=== PATIENT | male | born 1945 | race African-American/Black ===

== ENCOUNTER 2016-12-22 17:22 | Inpatient (IN) ==
[2016-12-22] MEDS ORDERED: PHENERGAN PO PRN (17:46)
[2016-12-22] MEDS: LANTUS INSULIN (PARKWAY) SUBQ SCH (18:57)
[2016-12-22] MEDS: HUMALOG (PARKWAY) SUBQ SCH ×3 (18:57→22:39)
[2016-12-22] MEDS: NS 1,000 ML IV SCH (19:01)
--- NOTE | 2016-12-22 19:10 | EKG Report ---
Test Performed on : 12/22/2016 6:45:41 PM Test Reason : T2DM, Hyperglycemia Blood Pressure : / mmHG Vent. Rate : 061 BPM Atrial Rate : 061 BPM P-R Int : 124 ms QRS Dur : 088 ms QT Int : 444 ms P-R-T Axes : 072 005 -69 degrees QTc Int : 446 ms Normal sinus rhythm. Possible Left atrial enlargement Marked ST abnormality, possible inferior subendocardial injury Abnormal ECG When compared with ECG of 17-NOV-2011 19:45, No significant change was found Confirmed by Carlito Beverly MD ([id number]) on 12/24/2016 9:02:14 PM
[2016-12-22 19:59] LABS: MANUAL DIFF NEEDED? NO
[2016-12-22 20:03] LABS: BASO% 0.1 % (0.0-0.8); EOS# 0.83 X1000 (0.0-0.7); EOS% 5.4 % (0.0-10.0); HEMATOCRIT 41.7 % (42.0-52.0); HEMOGLOBIN 14.3 g/dL (14.0-18.0); IMM GRAN# 0.03 X1000 (0.0-0.04); IMM GRAN% 0.2 % (0.0-0.5); LYMPH# 1.39 X1000 (1.2-3.4); LYMPH% 9.1 % (20.5-51.1); MCH 28.7 PG (27-31); MCHC 34.3 g/dL (33-37); MCV 83.7 FL (81-99); MONO# 0.62 X1000 (0.11-0.59); MPV 9.4 FL (7.4-10.4); NEUT% 81.2 % (42.2-75.2); PLT 378 X1000 (130-400); RBC 4.98 XMIL (4.7-6.1)
[2016-12-22 20:23] LABS: ALBUMIN 4.5 g/dL (3.5-5.0); CALCIUM 10.5 mg/dL (8.8-10.2); POTASSIUM 4.1 mmol/L (3.5-5.1); TOTAL BILIRUBIN 0.3 mg/dL (0.20-1.00); TOTAL PROTEIN 7.3 g/dL (6.3-8.3)
[2016-12-22] MEDS: PRAVACHOL PO SCH (20:42)
[2016-12-22] MEDS: MYCOSTATIN SUSP PO SCH (22:39)
[2016-12-23] MEDS: NS 1,000 ML IV SCH ×4 (00:19→23:41)
[2016-12-23] MEDS: HUMALOG (PARKWAY) SUBQ SCH ×2 (03:08→06:44)
[2016-12-23 05:55] LABS: MANUAL DIFF NEEDED? NO
[2016-12-23 06:03] LABS: BASO% 0.1 % (0.0-0.8); EOS# 1.31 X1000 (0.0-0.7); EOS% 6.9 % (0.0-10.0); HEMATOCRIT 38.5 % (42.0-52.0); HEMOGLOBIN 12.8 g/dL (14.0-18.0); IMM GRAN# 0.05 X1000 (0.0-0.04); IMM GRAN% 0.3 % (0.0-0.5); LYMPH# 1.96 X1000 (1.2-3.4); LYMPH% 10.3 % (20.5-51.1); MCH 28.2 PG (27-31); MCHC 33.2 g/dL (33-37); MCV 84.8 FL (81-99); MONO# 1.61 X1000 (0.11-0.59); MONO% 8.4 % (1.7-9.3); MPV 9.6 FL (7.4-10.4); PLT 356 X1000 (130-400); RBC 4.54 XMIL (4.7-6.1)
[2016-12-23 06:55] LABS: URINE SOURCE CLEAN CATCH
[2016-12-23 07:03] LABS: BILIRUBIN URINE 1+ (NEGATIVE); BLOOD URINE NEGATIVE (NEGATIVE); CLARITY SL. CLOUDY (CLEAR); COLOR YELLOW; LEUKOCYTES URINE TRACE (NEGATIVE); NITRITE URINE NEGATIVE (NEGATIVE); PROTEIN URINE TRACE mg/dL (NEGATIVE); SP GRAVITY URINE 1.025; UROBILINOGEN URINE NORMAL
[2016-12-23 07:12] LABS: URINE CRYSTAL CA OXALATE PRESENT /HPF; URINE CULTURE PL NEEDED? YES; URINE EPITHELIAL CELLS <10 /HPF (<10)
[2016-12-23 08:16] LABS: ALBUMIN 3.8 g/dL (3.5-5.0); CALCIUM 10.1 mg/dL (8.8-10.2); POTASSIUM 3.8 mmol/L (3.5-5.1); TOTAL BILIRUBIN 0.2 mg/dL (0.20-1.00); TOTAL PROTEIN 6.5 g/dL (6.3-8.3)
[2016-12-23] MEDS: HYDROCHLOROTHIAZIDE PO SCH (09:06)
[2016-12-23] MEDS: TOPROL XL PO SCH (09:06)
[2016-12-23] MEDS: MYCOSTATIN SUSP PO SCH ×4 (09:06→21:20)
[2016-12-23] MEDS: LANTUS INSULIN (PARKWAY) SUBQ SCH (09:07)
[2016-12-23] MEDS: COZAAR PO SCH (09:07)
[2016-12-23] MEDS: HUMALOG DOSE (PARKWAY) SUBQ SCH ×4 (09:10→21:19)
[2016-12-23 14:54] LABS: MANUAL DIFF NEEDED? NO
[2016-12-23 15:02] LABS: BASO% 0.1 % (0.0-0.8); EOS# 1.67 X1000 (0.0-0.7); EOS% 10.7 % (0.0-10.0); HEMATOCRIT 39.1 % (42.0-52.0); IMM GRAN# 0.05 X1000 (0.0-0.04); IMM GRAN% 0.3 % (0.0-0.5); LYMPH# 2.43 X1000 (1.2-3.4); LYMPH% 15.5 % (20.5-51.1); MCH 28.6 PG (27-31); MCHC 33.2 g/dL (33-37); MCV 86.1 FL (81-99); MONO# 1.19 X1000 (0.11-0.59); MONO% 7.6 % (1.7-9.3); MPV 8.9 FL (7.4-10.4); NEUT% 65.8 % (42.2-75.2); PLT 337 X1000 (130-400); RBC 4.54 XMIL (4.7-6.1)
[2016-12-23 15:26] LABS: ALBUMIN 3.6 g/dL (3.5-5.0); CALCIUM 9.6 mg/dL (8.8-10.2); POTASSIUM 3.4 mmol/L (3.5-5.1); TOTAL BILIRUBIN 0.2 mg/dL (0.20-1.00); TOTAL PROTEIN 6.2 g/dL (6.3-8.3)
--- NOTE | 2016-12-23 16:30 | PROGRESS NOTE ---
DATE: 12/23/2016 This is a 71-year-old patient of mine who presented to the office with a 15 pounds weight loss, polyuria, and a blood sugar of 900, A1c greater than 15. Was admitted, placed on insulin, and a sliding scale of insulin, as well as fluid resuscitation. Today his white count is 19,000, hematocrit is 38.5, platelet count is 356,000. His chemistries from this morning, sodium is 135, potassium 3.8, chloride 94, CO2 27, BUN was 53, creatinine 3. LFTs were normal. Blood sugars are staying in the low 100s to mid 200s. He has stable vital signs. His temp is 98.7 degrees, pulse was 75, respiratory rate 18, blood pressure 115/53, O2 saturation was 96 on room air. Patient is feeling well. No longer nauseated. No more vomiting. No diarrhea. Beginning to feel better. Tongue is feeling better, which is very coated, as well as his ability to swallow. We will redo a comp 7 now.
[2016-12-23] MEDS: PRAVACHOL PO SCH (21:20)
[2016-12-24] MEDS: HUMALOG DOSE (PARKWAY) SUBQ SCH ×4 (01:41→12:14)
[2016-12-24 06:16] LABS: HEMATOCRIT 35.9 % (42.0-52.0); HEMOGLOBIN 11.7 g/dL (14.0-18.0); MCH 28.5 PG (27-31); MCHC 32.6 g/dL (33-37); MCV 87.3 FL (81-99); MPV 9.5 FL (7.4-10.4); RBC 4.11 XMIL (4.7-6.1)
[2016-12-24 06:29] LABS: AGAP 9; ALBUMIN 3.2 g/dL (3.5-5.0); ALKALINE PHOSPHATASE 137 U/L (32-122); BUN 30 mg/dL (8-22); CALCIUM 8.7 mg/dL (8.8-10.2); CHLORIDE 102 mmol/L (98-107); COSMO 279; GOT 21 U/L (10-34); GPT 20 U/L (10-44); POTASSIUM 3.2 mmol/L (3.5-5.1); SODIUM 137 mmol/L (136-145); TCO2 26 mmol/L (25-35); TOTAL PROTEIN 5.6 g/dL (6.3-8.3)
[2016-12-24] MEDS: MYCOSTATIN SUSP PO SCH ×2 (08:33→13:44)
[2016-12-24] MEDS: TOPROL XL PO SCH (08:33)
[2016-12-24] MEDS: HYDROCHLOROTHIAZIDE PO SCH (08:33)
[2016-12-24] MEDS: COZAAR PO SCH (08:34)
[2016-12-24] MEDS: LANTUS INSULIN (PARKWAY) SUBQ SCH (10:19)
[2016-12-24 10:58] VITALS: BP 125/68
--- NOTE | 2017-01-13 07:01 | HISTORY AND PHYSICAL ---
Presented to the office on 12/22 complaining of polyuria, polydipsia, and generalized weakness. Was found to have significantly 480 blood sugar done in the office. We subsequently ordered a comp on almond, which revealed that he had profound hyperglycemia. It turns out he had an been on metformin and has started having some issues with diarrhea, nausea, and vomiting. We stopped the metformin and put him on the Xigduo. He ran out of Xigduo, which was doing well, and then got back on metformin and had recurrent issues with diarrhea. He also has a background of hypertension. He is on metoprolol succinate 100 daily, losartan 100 q.a.m., hydrochlorothiazide 25 daily. His high blood pressure is uncomplicated. He has no history of congestive heart failure, cerebrovascular accident, chronic kidney disease, electrical heart disease, valvular disease, coronary artery disease, peripheral artery disease and/or aneurysms. His diabetes has been with him for some time. No hypothyroidism, no hypogonadism. REVIEW OF SYSTEMS: Pulmonary: He has no issues with his lungs. He has no shortness of breath. No wheezing. No cough. Genitourinary: He has polyuria, polydipsia. No PPH or LUTS symptoms. No kidney failure or kidney disease our knowledge. Gastrointestinal: No nausea, vomiting, diarrhea, constipation ordinarily, but as he has resumed his metformin, he is again having those symptoms. Neuromuscular: Negative. Skin: Clear. Neurological: No seizures, epilepsy, syncope. He denies any skin disorders. No psych problems. No PREPARATION SUPERVISOR disease. No allergies, asthma, or eczema. PHYSICAL EXAMINATION: VITAL SIGNS: At the time of admission the patient was 5 feet, 3, weighs 54 pounds. Temperature was 97.4, pulse 60, respiratory rate 16, blood pressure is 91/49, bit low for him. Room air sats were 97%. HEAD: His head was normocephalic. EYES: Pupils equal, round, and reactive to light and accommodation. Sclerae clear. ENT: Tongue was coated. Dry mucous membranes. Nares patent. NECK: Supple. Bounding carotids without thyromegaly. CHEST: Clear bilaterally. CARDIOVASCULAR: Regular rhythm and rate. No murmurs, gallops, clicks, and/or rubs. ABDOMEN: Soft. No hepatosplenomegaly. No costovertebral angle tenderness. EXTREMITIES: Negative for clubbing, cyanosis, and edema. NEUROLOGIC EXAMINATION: Intact. ADMITTING DIAGNOSIS: 1. Hypertension. 2. Type 2 diabetes poor control. 3. Adverse reaction to metformin. 4. Dehydration. He had the following labs on day of admission: Sodium was 131, potassium 4.1, chloride 85, CO2 26, BUN 50, creatinine 2.6. BUN and creatinine ratio was 19. Glucose 543, calcium is 10.5. Total bilirubin 0.3. AST 13 and ALT 34. Alkaline phosphatase 196. Total protein 7.3, albumin 4.5, globulin 3. He had small level of ketones. His urine was concentrated 1025. He was nitrate negative, 10 to 20 WBCs were seen. He was to be admitted to the hospital for evaluation of his diabetic control, rehydration, and reinstitution of his medications.
== END 2016-12-24 15:13 | disposition home or self-care (01) | DRG 638 ==
LOC: P.MEDSURG 17:22
PROVIDERS: ADMIT Internal Medicine; ATTEND Internal Medicine
DX: E11.65 Type 2 diabetes mellitus with hyperglycemia (principal); K52.1 Toxic gastroenteritis and colitis; I10 Essential (primary) hypertension; E86.0 Dehydration; T38.3X5A Adverse effect of insulin and oral hypoglycemic [antidiabetic] drugs, initial encounter; Z79.899 Other long term (current) drug therapy
CPT/HCPCS: 36415; 71020; 80053; 81001; 82009; 82948; 85025; 85027; 87088; 93005; 93010; J1815; J7030

== ENCOUNTER 2017-07-15 10:36 | Inpatient (IN) ==
[2017-07-15] MEDS ORDERED: NS 1,000 ML IV ONE (10:47)
[2017-07-15] MEDS ORDERED: ZOFRAN IV ONE (10:51)
--- NOTE | 2017-07-15 11:02 | EKG Report ---
Test Performed on : 07/15/2017 10:59:52 AM Test Reason : SYNCOPE Blood Pressure : / mmHG Vent. Rate : 069 BPM Atrial Rate : 069 BPM P-R Int : 128 ms QRS Dur : 076 ms QT Int : 402 ms P-R-T Axes : 067 -05 006 degrees QTc Int : 430 ms Normal sinus rhythm. Normal ECG When compared with ECG of 22-DEC-2016 18:45, ST less depressed in Inferior leads T wave inversion no longer evident in Inferior leads T wave inversion no longer evident in Anterior leads Unconfirmed Result
--- NOTE | 2017-07-15 11:24 | Diag Imaging Result Doc PS360 ---
EXAM: CT HEAD W/O CONTRAST - 07/15/2017 HISTORY: AMS TECHNIQUE: Dose reduction protocol COMPARISON: 11/17/2011 FINDINGS: There are mild atrophic changes similar to the previous exam. There are chronic microvascular ischemic changes similar to the previous exam. There is no indication of recent infarct, although acute infarcts may not be immediately visible. There is no evidence of hemorrhage, mass effect, midline shift, or hydrocephalus. There is chronic deformity of the globe of the left orbit with calcifications noted. IMPRESSION: Mild atrophic changes and moderate chronic microvascular ischemic changes similar to the previous exam. No visible acute intracranial abnormality. No hemorrhage or mass effect. Electronically signed by Evan Bailey 07/15/2017 11:22 AM
--- NOTE | 2017-07-15 11:27 | Diag Imaging Result Doc PS360 ---
EXAM: FLAT/UPRIGHT ABD/1 VIEW CHEST - 07/15/2017 HISTORY: Abd pain syncope TECHNIQUE: Supine and upright abdomen one view chest COMPARISON: Chest two views of 09/21/2017 FINDINGS: The bowel gas pattern appears nonspecific and nonobstructive. There is no free air identified. There are surgical clips at the right upper quadrant. There are some atherosclerotic calcifications noted at the pelvis and groins. Upright chest shows mild cardiomegaly with interval increase in heart size. There is vascular congestion. There is an infiltrate or edema at the left lingula. There are possible tiny bilateral pleural effusions. There is no pneumothorax identified. IMPRESSION: Nonspecific bowel gas pattern. Cardiomegaly with mild congestive heart failure. Questionable superimposed pneumonia at left lingula. Electronically signed by Evan Bailey 07/15/2017 11:25 AM
[2017-07-15 11:34] LABS: MANUAL DIFF NEEDED? NO
[2017-07-15 11:49] LABS: BASO% 0.2 % (0.0-0.8); EOS# 0.02 X1000 (0.0-0.7); EOS% 0.1 % (0.0-10.0); HEMOGLOBIN 9.7 g/dL (14.0-18.0); IMM GRAN# 0.04 X1000 (0.0-0.04); IMM GRAN% 0.3 % (0.0-0.5); LYMPH# 1.39 X1000 (1.2-3.4); LYMPH% 9.7 % (20.5-51.1); MCH 27.5 PG (27-31); MCHC 31.3 g/dL (33-37); MCV 87.8 FL (81-99); MONO# 1.58 X1000 (0.11-0.59); MPV 8.5 FL (7.4-10.4); NEUT% 78.7 % (42.2-75.2); PLT 527 X1000 (130-400); RBC 3.53 XMIL (4.7-6.1)
[2017-07-15] MEDS ORDERED: DUONEB (A & A) INH ONE (11:56)
[2017-07-15] MEDS ORDERED: ZOSYN 3.375 GM in NS 50 ML IV ONE (11:56)
[2017-07-15] MEDS ORDERED: VANCOMYCIN 1 GM/NS 1 GM/250 ML IVPB IV ONE (11:56)
[2017-07-15 12:12] LABS: CALCIUM 9.3 mg/dL (8.8-10.2); POTASSIUM 4.8 mmol/L (3.5-5.1); TOTAL BILIRUBIN 0.2 mg/dL (0.20-1.00); TOTAL PROTEIN 7.3 g/dL (6.3-8.3)
--- NOTE | 2017-07-15 13:24 | PROVIDER DOCUMENTATION ---
This chart was entered by Santos Gonzalez Scribe, acting as scribe for Saw Mustafa MD. HPI-Abdominal Pain/GI Problem - General Chief Complaint: Abdominal Pain Stated Complaint: ABDOMEN PAIN Time Seen by Provider: 07/15/17 10:39 Source: patient Allergies/Adverse Reactions: Patient Allergies Allergy/AdvReac Type Severity Reaction Status Date / Time No Known Allergies Allergy Verified 12/22/16 18:32 Home Medications: Home Medication List Medication Instructions Recorded Confirmed Last Taken Type Hydrochlorothiazide 25 mg PO QAM #0 tablet 12/24/16 Unknown Rx Losartan [Cozaar] 100 mg PO QAM #0 tablet 12/24/16 Unknown Rx Metoprolol Succinate E.r. [Toprol 100 mg PO QAM #0 tablet 12/24/16 Unknown Rx Xl] - History of Present Illness-ABD Nature of Presenting Problems: patient is a 71 y/o M that presents to the Er post syncopal episode. patient just finished having diarrhea BM and felt dizzy. He then passed out from the toilet stool. Patient reports being on floor maybe 5 to 10 minutes. patient has had abdominal pain for about 3 days. Denies n/v, fever/chills. reports more short of breath than normal. Abdominal Pain Onset Location: reports: generalized abdomen Quality of Pain: reports: aching, cramping Severity in ED: reports: moderate Onset/Duration: reports: gradual, 3 days ago Timing: reports: still present, improving Activities at Onset: reports: none Modifying Factors: improves with: nothing Associated Symptoms: reports: diaphoresis, diarrhea, dizziness, shortness of breath, syncope. denies: back/neck pain, chest pain, constipation, fever/chills , genitourinary problems, nausea, vomiting Last BM: this morning Dark Stools Present?: reports: none noticed Rectal Bleeding: reports: none Similar Symptoms Previously?: No Recently seen or treated by another doctor?: No Review of Systems - Adult - REVIEW OF SYSTEMS - ADULT Constitutional: denies: chills, fever Eyes: denies: decreased vision, blurred vision, double vision Ears, Nose, Mouth & Throat: denies: ear discharge, ear pain, sinus problem, throat pain, throat swelling Cardiovascular: reports: syncope. denies: orthopnea, palpitations Respiratory: reports: shortness of breath. denies: cough, wheezing Gastrointestinal: reports: abdominal pain, diarrhea. denies: nausea, vomiting Genitourinary: reports: no symptoms reported Musculoskeletal: denies: back pain, joint pain, neck pain Integumentary: reports: no symptoms reported Neurological: reports: dizziness/vertigo, syncope. 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 negative: pale conjunctivae - HEAD, EARS, NOSE, MOUTH & THROAT HENMT: normocephalic/atraumatic, moist mucous membranes, normal ENT inspection - NECK Neck: non-tender, full range of motion, normal inspection - RESPIRATORY Respiratory: lungs clear, normal breath sounds, no respiratory distress, no accessory muscle use - CARDIOVASCULAR Cardiovascular: regular rate, rhythm, no edema, no murmur - GASTROINTESTINAL (ABDOMEN) Abdominal Exam: normal bowel sounds, non tender, soft, no organomegaly, no pulsatile mass - MUSCULOSKELETAL Back Exam: no CVA tenderness, no vertebral tenderness Extremity: normal range of motion, normal inspection, no pedal edema, pelvis stable - SKIN Integumentary: normal turgor, diaphoresis - NEUROLOGIC Neurologic: grossly normal, no motor/sensory deficits - PSYCHIATRIC Psych/Mental Status: normal mood/affect, normal thought content, normal thought process, oriented x 3 Progress - PLAN OF CARE/RESULTS Progress/Plan/Lab Results: Vital Signs - 8 hr 07/15/17 10:37 Pulse Rate 74 Respiratory Rate 24 Blood Pressure 106/080 O2 Sat by Pulse Oximetry 90 L Vital Signs Pulse Resp BP Pulse Ox 07/15/17 12:18 71 26 H 137/86 99 07/15/17 12:05 70 20 100 07/15/17 10:37 74 24 106/080 90 L No Known Allergies Allergy (Verified 12/22/16 18:32) Hydrochlorothiazide 25 mg PO QAM #0 tablet 12/24/16 Losartan [Cozaar] 100 mg PO QAM #0 tablet 12/24/16 Metoprolol Succinate E.r. [Toprol Xl] 100 mg PO QAM #0 tablet 12/24/16 Dietary Diet NPO Start ThuJul 15 104 Laboratory 07/15/17 07/15/17 07/15/17 12:10 11:30 11:30 WBC 14.37 H RBC 3.53 L Hgb 9.7 L Hct 31.0 L MCV 87.8 MCH 27.5 MCHC 31.3 L RDW Std Deviation 14.8 H Plt Count 527 H MPV 8.5 Immature Gran % (Auto) 0.3 Neut % (Auto) 78.7 H Lymph % (Auto) 9.7 L [place] % (Auto) 11.0 H Eos % (Auto) 0.1 Baso % (Auto) 0.2 Immature Gran # (Auto) 0.04 Neut # (Auto) 11.31 H Lymph # (Auto) 1.39 [place] # (Auto) 1.58 H Eos # (Auto) 0.02 Baso # (Auto) 0.03 Sodium Potassium Chloride Carbon Dioxide Anion Gap BUN Creatinine Estimated GFR/1.73 m2 BUN/Creatinine Ratio Glucose Calculated Osmolality Calcium Magnesium Total Bilirubin AST ALT Alkaline Phosphatase Troponin T Pmp-L-[id number] Pept 387 H Total Protein Albumin Globulin Albumin/Globulin Ratio Amylase Lipase Plasma Lactate 2.6 H 07/15/17 07/15/17 11:30 11:30 WBC RBC Hgb Hct MCV MCH MCHC RDW Std Deviation Plt Count MPV Immature Gran % (Auto) Neut % (Auto) Lymph % (Auto) [place] % (Auto) Eos % (Auto) Baso % (Auto) Immature Gran # (Auto) Neut # (Auto) Lymph # (Auto) [place] # (Auto) Eos # (Auto) Baso # (Auto) Sodium 130 L Potassium 4.8 Chloride 98 Carbon Dioxide 15 L Anion Gap 17 BUN 48 H Creatinine 2.0 H Estimated GFR/1.73 m2 33 BUN/Creatinine Ratio 24 Glucose 178 H Calculated Osmolality 278 Calcium 9.3 Magnesium 2.0 Total Bilirubin 0.20 AST 22 ALT 25 Alkaline Phosphatase 135 H Troponin T 0.027 Ovs-A-Bssvfuwyyzv Pept Total Protein 7.3 Albumin 4.0 Globulin 3.0 Albumin/Globulin Ratio 1.0 Amylase 156 Lipase 28 Plasma Lactate Orders Category Date Time Status Saline Loc DIRECTED Care 07/15/17 10:47 Active NPO Diet 07/15/17 10:[address] HEAD W/O CONTRAST [CT] Stat Exams 07/15/17 10:47 Completed FLAT/UPRIGHT ABD/1 VIEW CHEST [RAD] Stat Exams 07/15/17 10:47 Completed AMYLASE [CHEM] Stat Lab 07/15/17 11:30 Completed BLOOD CULTURE [BLDCUL] Stat Lab 07/15/17 11:56 Ordered CBC WITH ELECTRONIC DIFF [HEME] Stat Lab 07/15/17 11:30 Completed COMPREHENSIVE METABOLIC PANEL [CHEM] Stat Lab 07/15/17 11:30 Completed LACTATE, PLASMA [CHEM] Stat Lab 07/15/17 12:10 Completed LIPASE [CHEM] Stat Lab 07/15/17 11:30 Completed MAGNESIUM [CHEM] Stat Lab 07/15/17 11:30 Completed PRO B-NATRIURETIC PEPTIDE Stat Lab 07/15/17 11:30 Completed TROPONIN T Stat Lab 07/15/17 11:[address] W/POSS RFLX CULT [URINALYSIS] Stat Lab 07/15/17 10:47 Uncollected 0.9% Sodium Chloride Inj [Ns] 1,000 ml Med 07/15/17 10:47 Discontinued IV 999 mls/hr Albuterol 2.5MG/Ipratrop 0.5MG [Duoneb (A & A)] Med 07/15/17 11:56 Discontinued 3 ml INH NOW ONE Ondansetron [Zofran] Med 07/15/17 10:51 Discontinued 4 mg IV NOW ONE Piperacillin/Tazobactam [Zosyn] 3.375 gm Med 07/15/17 11:56 Discontinued 0.9% Sodium Chloride Inj [Ns] 50 ml IV NOW Vancomycin 1 gm/Ns Med 07/15/17 11:56 Discontinued 1 gm in 250 ml IV NOW Aerosol Treatments Routine Oth 07/15/17 11:57 Completed Aerosol Treatments Stat Oth 07/15/17 11:57 Completed EKG [EKG] Stat Ther 07/15/17 10:47 Draft Result Diagrams: 07/15/17 11:30 07/15/17 11:30 - EKG 1 Time of EKG reading by physician:: 10:59 EKG Read and Signed by:: Saw Mustafa EKG Interpretation (*Must complete 3 of following elements*): Normal Rate: 69 Rhythm: NSR [place]: normal QRS: normal MA Interval: normal ST Wave: normal - XRAY 1 XRAY Study: Chest Impression: Abnormal XRAY Interpretation: cmg with chf, questionable superimposed left lingular pneumonia - CT/MRI 1 CT Study: Head Impression: Abnormal CT Results: mild atrophy, microvascular changes - CONSULTS/PCP/HOSPITALIST Notification #1 *Consult/PCP/Hospitalist*: Time Discussed: 13:20 Consult Disposition: Admit Departure - Departure Date of Disposition Decision: 07/15/17 Time of Disposition Decision: 13:22 DIAGNOSIS: Syncope, Pneumonia Disposition: ADMITTED INPATIENT 09 Certified Medical Emergency: Emergent Condition: Stable Referrals and Follow-Ups: None,PCP [Primary Care Provider] - - Critical Care Note This patient required my direct & personal management of CC.: No Attestation - Physician/ DARBY Attestation The physician spent face to face time with patient:: Yes Advanced Practice Provider documentation review:: Supervising physician onsite and consulted in the evaluation and care of this patient. The physician did have a face to face encounter with the patient. This chart was documented by the indicated scribe, (Santos Gonzalez, Scribe) and accurately reflects the services I performed and decisions made by me, Saw Mustafa MD, as attested by the provider's signature.
[2017-07-15] MEDS: ZOFRAN IV PRN (15:45)
[2017-07-15 16:09] LABS: BILIRUBIN URINE NEGATIVE (NEGATIVE); BLOOD URINE NEGATIVE (NEGATIVE); CLARITY CLEAR (CLEAR); COLOR YELLOW; GLUCOSE URINE NEGATIVE (NEGATIVE); LEUKOCYTES URINE NEGATIVE (NEGATIVE); NITRITE URINE NEGATIVE (NEGATIVE); PROTEIN URINE TRACE mg/dL (NEGATIVE); UROBILINOGEN URINE NORMAL
[2017-07-15 16:10] LABS: URINE CAST NONE SEEN /LPF; URINE CRYSTAL NONE SEEN /HPF; URINE CULTURE PL NEEDED? YES; URINE EPITHELIAL CELLS <10 /HPF (<10); URINE RBC <10 /HPF (<10); URINE SOURCE CLEAN CATCH; URINE WBC <10 /HPF (<10)
[2017-07-15] MEDS ORDERED: LASIX IV ONE (23:57)
[2017-07-15] MEDS ORDERED: ALBUTEROL NEB INH ONE (23:58)
[2017-07-16] MEDS: ZOFRAN IV PRN (06:57)
[2017-07-16] MEDS ORDERED: TYLENOL PO ONE (07:02)
[2017-07-16] MEDS ORDERED: PHENERGAN IV ONE (10:12)
[2017-07-16] MEDS ORDERED: SODIUM CHLORIDE 0.9% INJ ONE (10:12)
[2017-07-16] MEDS ORDERED: DEMEROL IV ONE (10:13)
[2017-07-16 10:29] LABS: BE -13.2 mmoll (-3.0-3.0); BLOOD TYPE ARTERIAL; DRAW SITE R RADIAL; METHB 1.4 % (0.0-1.5); O2(CT) 12.1 mL/dL (15.0-23.0); PCO2(98.6) 25 mmHg (35-45); PO2(98.6) 79 mmHg (60-100); SAMPLE BLOOD; SAO2 96.8 % (95.0-100.0); THB 9.1 g/dL (11.5-17.4); pH(98.6) 7.29 (7.35-7.45)
[2017-07-16 10:32] LABS: MANUAL DIFF NEEDED? NO
[2017-07-16 10:34] LABS: ALLEN TEST YES; MODALITY CANNULA
[2017-07-16 10:48] LABS: BASO% 0.1 % (0.0-0.8); HEMATOCRIT 28.8 % (42.0-52.0); HEMOGLOBIN 9.4 g/dL (14.0-18.0); IMM GRAN# 0.05 X1000 (0.0-0.04); IMM GRAN% 0.4 % (0.0-0.5); LYMPH# 0.94 X1000 (1.2-3.4); LYMPH% 6.8 % (20.5-51.1); MCH 28.2 PG (27-31); MCHC 32.6 g/dL (33-37); MCV 86.5 FL (81-99); MONO# 1.11 X1000 (0.11-0.59); MPV 8.8 FL (7.4-10.4); NEUT% 84.7 % (42.2-75.2); PLT 510 X1000 (130-400); RBC 3.33 XMIL (4.7-6.1)
[2017-07-16 11:08] LABS: CALCIUM 9.1 mg/dL (8.8-10.2); POTASSIUM 5.6 mmol/L (3.5-5.1)
[2017-07-16] MEDS: NS 1,000 ML IV SCH ×3 (13:00→20:47)
[2017-07-16] MEDS ORDERED: NS 1,000 ML ONE (13:08)
[2017-07-16] MEDS ORDERED: SENSORCAINE 0.5%-EPI 1:200,000 ONE (13:32)
[2017-07-16] MEDS ORDERED: KETAMINE ONE (13:37)
[2017-07-16] MEDS ORDERED: VERSED ONE (13:39)
--- NOTE | 2017-07-16 13:39 | Diag Imaging Result Doc PS360 ---
CHEST-1 VIEW - 07/16/2017 INDICATION: Cardiac Tamponade TECHNIQUE: COMPARISON: 07/15/2017 FINDINGS: Lung volumes are much lower than yesterday. The heart size is enlarged but approximately stable from prior. There is a grossly stable ill-defined infiltrate at the left midlung and base. The right lung is clear. No pneumothorax or significant effusion. IMPRESSION: Much lower lung volumes but otherwise no change from prior. Electronically signed by Brad Bethea 07/16/2017 1:37 PM
[2017-07-16] MEDS ORDERED: STERILE WATER INJ. ONE (13:40)
[2017-07-16] MEDS ORDERED: APRESOLINE IV PRN (14:00)
[2017-07-16] MEDS ORDERED: ZEMURON ONE (14:06)
[2017-07-16] MEDS ORDERED: SODIUM CHLORIDE 0.9% 10 ML ONE (14:09)
[2017-07-16] MEDS ORDERED: KEFZOL 1 GM/D5W 1 GM/50 ML IVPB ONE (14:18)
[2017-07-16] MEDS ORDERED: EPHEDRINE ONE (14:39)
--- NOTE | 2017-07-16 14:40 | ECHO REPORT ---
ORDER DATE: 07/16/2017 INDICATION: Syncope, diabetes, hypertension. FINDINGS: This is a limited study. 1. Right heart structures are somewhat difficult to visualize. Overall, there does appear to be early diastolic collapse of the right ventricle with what appears to be normal RV systolic function. In addition, right atrium appears normal in size. There was essentially very minimal Doppler evaluation of the tricuspid valve. 2. Left atrium was poorly visualized and minimally evaluated. 3. No mitral valve prolapse. Trace mitral regurgitation. There is some evidence of mitral annular calcification. 4. The left ventricle appears to be somewhat under filled. There is estimated ejection fraction greater than 55%. Very limited measurements were made. 5. The aortic valve appears to open well. It is somewhat sclerotic. There does not appear to be any appreciable degree of stenosis. Limited Doppler evaluation of the aortic valve. 6. Limited evaluation of the aorta but overall appears unremarkable in the visualized segments. 7. There is a large circumferential pericardial effusion with the primary portions of it being in the anterior. There does appear to be diastolic right ventricular and right atrial collapse consistent with tamponade-type physiology. Again, minimal Doppler evaluations across the tricuspid and mitral valves. So, very limited data to assess for respirophasic changes. 8. The patient was evaluated by the local physician at [facility] and was notified of the findings of the echo. Per report, the patient has been transferred for definitive management of the pericardial effusion. cc: MD Carlito Hayes MD
[2017-07-16] MEDS ORDERED: NEOSTIGMINE ONE (14:52)
[2017-07-16] MEDS ORDERED: ROBINUL ONE (14:52)
[2017-07-16] MEDS: LASIX ONE ×2 (15:20→17:45)
--- NOTE | 2017-07-16 15:42 | Diag Imaging Result Doc PS360 ---
EXAM: CHEST-PORTABLE HISTORY: pericardio window TECHNIQUE: Portable upright AP COMPARISON: 07/16/2017 at 1320 FINDINGS: Small infiltrates or atelectasis in the mid and lower lungs. Findings are slightly more pronounced in the right base than they were previously. Heart remains mildly prominent. The left hemidiaphragm is elevated. No pneumothoraces. A catheter overlies the right side of the heart. IMPRESSION: Worsening atelectasis. Electronically signed by Kenneth Barrett 07/16/2017 3:40 PM
[2017-07-16] MEDS: XOPENEX NEB INH SCH ×3 (16:30→23:04)
[2017-07-16] MEDS: ATROVENT NEB INH SCH ×3 (16:30→23:04)
--- NOTE | 2017-07-16 16:44 | HISTORY AND PHYSICAL ---
PRIMARY CARE PROVIDER: Dr. Beverly. CHIEF COMPLAINT: Stomach pains, syncope, shortness of breath, and now with cardiac tamponade. HISTORY OF PRESENT ILLNESS: Mr. Walter Phillips is a 71-year-old male with a medical history of hypertension, diabetes mellitus type 2, hyperlipidemia, GERD , who presented yesterday to [place] [facility] after a syncopal episode. He was on the toilet, had just finished having a loose stool, and felt dizzy. He passed out off the toilet onto the floor for about 5-10 minutes. states that he was very sweaty and lightheaded. This apparently happened yesterday 07/15/2017 around 12 noon and was brought to the ER. Much information was obtained through medical records and the patient's as he was too short of breath and to give much detail. But apparently he has been having some epigastric abdominal pains along with shortness of breath and lightheaded spells for the last 2-3 days. She also stated that he was having chills and a productive cough with some nausea. Upon arrival to the ED a chest x-ray was obtained which showed cardiomegaly, congestive heart failure, and a left lingula pneumonia. He did have a white blood cell count of 14,000 but was afebrile. He also had a head CT which was negative. Apparently he was having some distress when he was on the floor, significant shortness of breath, some mild hypotension. An echocardiogram showed a pericardial effusion with symptoms of pericardial tamponade. He was emergently transferred here for advanced care. He has been seen by Dr. Liang at the bedside and now has left for emergency surgery, likely a pericardial window. Then he will be transferred to the ICU for close observation. Given the abdominal pains being epigastric, the abdominal x-ray did not show anything. Maybe once he is more stable he can undergo a chest, abdomen, and pelvic CT. He will be on antibiotic therapy for pneumonia. It looks like he only received a 1 time dose of Zosyn and 1 time dose of vancomycin. Will follow along in the ICU. He does have cardiology on board as well. PAST MEDICAL HISTORY: Hypertension, poorly-controlled diabetes mellitus type 2 , hyperlipidemia, GERD, left eye blindness, CKD stage 3. PAST SURGICAL HISTORY: Umbilical hernia repair. SOCIAL HISTORY: Quit smoking 4 years ago. Prior to that smoked a half pack per day. He denied alcohol or illicit drug use. Lives at home with his . FAMILY HISTORY: Positive for diabetes mellitus type 2. REVIEW OF SYSTEMS: Fourteen point review of systems were complete and all were negative except for those mentioned in the above HPI. He did have some nausea, severe shortness of breath upon assessment, complaining of the epigastric chest pains 9/10 that radiated to his upper abdomen. Did have some chills, shortness of breath, nausea, dizziness with lightheaded spells, some diaphoresis, and a syncopal spell. ALLERGIES: No known drug allergies. HOME MEDICATIONS: Albuterol inhaled 1 puff every 6 hours p.r.n., amlodipine besylate 5 mg p.o. daily, Glimepiride 4 mg p.o. daily, Losartan hydrochlorothiazide 100/12.5 mg p.o. daily, metformin 500 mg p.o. t.i.d. before meals, metoprolol Toprol-XL 100 mg p.o. daily, pravastatin 40 mg p.o. nightly, and Bactrim 1 tablet p.o. twice daily. PHYSICAL EXAMINATION: VITAL SIGNS: Temperature 95.9 degrees, heart rate 95, respiratory rate was 40, blood pressure 161/103, saturation 98% on 4 L nasal cannula. GENERAL: Mr. Walter Phillips is a 71-year-old male, who is in a significant amount of respiratory distress. He is able to answer some questions but with difficulty as he was very short of breath. HEENT: Atraumatic, normocephalic. Pupils equal, round, reactive to light. Extraocular movements intact. Mucous membranes are dry. NECK: Trachea midline. CARDIOVASCULAR: S1, S2. Regular rate and rhythm. Negative for rubs or gallops , but very muffled to auscultation. He had bilateral radial pulses +2. Left pedal pulse was nonpalpable. Right pedal pulse was found with Doppler. Lower extremities are cool. PULMONARY: Decreased in the bases. Mild crackles throughout. Shallow, rapid breathing. Significant work of breathing. Currently on 4 L nasal cannula. GI: Soft. Tender in epigastric region. Hypoactive bowel sounds x4. Nondistended. EXTREMITIES: No edema. Moves all extremities equally. NEUROLOGIC: A O x4. Moves all extremities equally. Follows commands. SKIN: Warm and clammy. Cool lower extremities but intact. LABORATORY DATA: White blood cells 13,000, hemoglobin 9.4, hematocrit 28.8, platelet count 510,000. ABGs on 3 L nasal cannula, pH 7.29, pCO2 25, PO2 79, bicarb 14, base excess -13, lactate 3.0. Sodium 136, potassium 5.6, BUN 66, creatinine is 2.2, glucose 266. Urinalysis yesterday was negative. Amylase and lipase were 182 and 23. IMAGING: Since admission, abdominal x-ray: Nonspecific bowel-gas pattern. EKG : Sinus rhythm. Some mild ST depression in the inferior leads. QTc was 430. Rate was 69. Head CT: Mild atrophic changes and moderate chronic microvascular ischemic changes similar to previous exam. No acute findings. Chest x-ray: Much lower lung volumes but otherwise no change from prior. The chest x-ray findings showed cardiomegaly with mild congestive heart failure, questionable superimposed pneumonia at the left lingula. ASSESSMENT AND PLAN: 1. Cardiac tamponade secondary to large pericardial effusion. Emergently transferred here for a pericardial window by Dr. Liang. Too unstable for chest CT but once patient is more stable will obtain a chest CT. 2. Complaints of abdominal pain. Abdominal x-ray did not show anything acute but will likely need an abdominal CT once stable. 3. Hypertension. Once he is stable we can consider resuming his Toprol 100 mg p.o. daily. Likely we will hold on his losartan hydrochlorothiazide as he has some MERA and possibly hold on his amlodipine. But will follow recommendations from cardiology. 4. Diabetes mellitus type 2. Pattern blood glucoses, sliding scale insulin. Diabetic diet once stable. Will hold metformin as patient does have some MERA. 5. Hyperlipidemia. Will continue statin. 6. Community-acquired pneumonia. We will do Rocephin. 7. Positive signs and symptoms of sepsis. He has an elevated white blood cell count, elevated respiratory rate. CO2 is low, bicarb low. Lactate is up to 3.0. He will be receiving IV fluid hydration at 125 an hour. We will continue with antibiotic therapy and follow up on cultures. 8. Acute kidney injury, looks like on chronic kidney disease stage 3. Will receive IV fluid hydration for now. 9. Hyperkalemia. Will recheck once back from surgery and will treat accordingly. 10. Mixed acidosis secondary to kidney dysfunction and respiratory distress or respiratory failure. Will repeat ABGs tomorrow morning. 11. Gastroesophageal reflux disease. Continue with proton pump inhibitor. 12. Deep venous thrombosis prophylaxis. SCDs. Dictated by FRANCHESCA Evans for Ketan Caceres MD cc: FRANCHESCA Evans MD Michael Putman, MD pt examined, agree with above, seen face to face, pt had pulsus paradoxus on exam, and large symptomatic effusion, will admit to ICU, seen in PACU and was still hypoxic, s/p pericardial effusion, will repeat echo and pursue ct scan of chest to evaluate for mailgnancy APENOT MTDD
[2017-07-16] MEDS: HUMULIN R SUBQ SCH ×2 (17:44→20:42)
[2017-07-16] MEDS: ZOSYN 3.375 GM in NS 50 ML IV SCH ×2 (17:45→23:56)
[2017-07-16 17:48] LABS: IRON SATURATION 25 %; TIBC 239 ug/dL; TOTAL IRON 60 ug/dL (53-167); UNBOUND IRON 179 ug/dL (112-346)
[2017-07-16 17:49] LABS: UR CREAT RANDOM 13.8 mg/dL (14-26)
--- NOTE | 2017-07-16 18:07 | CONSULTATION ---
DATE OF CONSULTATION: 07/16/2017 IMPRESSION: 1. Recent syncope. 2. Large pericardial effusion evident with echocardiographic markers for tamponade. Etiology for effusion not entirely clear. 3. Progressive epigastric discomfort and recent diarrhea. Etiology not clear. 4. Chronic kidney disease. 5. Anemia. 6. Hypertension. 7. Type 2 diabetes mellitus. 8. Previous heavy cigarette use discontinued 4 years ago. 9. Previous heavy alcohol use also discontinued 4 years ago. RECOMMENDATIONS: 1. Given clinical presentation, large pericardial effusion, and echocardiographic markers of tamponade, urgent pursuit of removal of pericardial fluid needed to stabilize patient. Pericardiocentesis and/or pericardial window recommended and discussed with the patient and his family. Urgency of the situation also stressed to the patient. 2. Intravenous fluids. 3. Chest CT scan needed along with stat chest x-ray. 4. Further recommendations to follow depending on clinical course and radiographic findings. HISTORY: This is a 71-year-old, -[place] male with past history of hypertension, type 2 diabetes mellitus, gastroesophageal reflux, chronic kidney disease, previous heavy smoking, and previous heavy alcohol use was admitted to [facility] for further management after presenting with recent syncope as well as progressive upper abdominal pain and recent diarrhea. The patient relates a long history of recurrent epigastric to low substernal discomfort, which is dull to burning in character. He has been taking anti-reflux medications with some improvement in discomfort. He reports that recently discomfort got considerably worse and did not seem to respond. Discomfort has been near continuous for several days. He has had some recent diarrhea as well. He had bowel movement and at the conclusion of this, he had a syncopal spell. He was brought to the hospital for evaluation. Syncope workup was being pursued. Echocardiography indicated large pericardial effusion with echocardiographic markers for tamponade. Urgent cardiology consultation was requested. The patient denies any history of heart problems in the past. He is not known to have vascular disease. PAST MEDICAL HISTORY: 1. Hypertension. 2. Type 2 diabetes mellitus. 3. Chronic kidney disease. 4. Gastroesophageal reflux disease. 5. History of previous heavy cigarette use in the past. Discontinued 4 years ago. 6. History of heavy alcohol use in the past. Discontinued 4 years ago. 7. History of blindness left eye. ALLERGIES: He has no known drug allergies. He has demonstrated intolerance to metformin in the past. MEDICATIONS: Prior to admission include hydrochlorothiazide, losartan and metoprolol. PAST SURGICAL HISTORY: None. SOCIAL HISTORY: He has history of previous heavy cigarette use, discontinued 4 years ago. He also has history of previous heavy alcohol use. Discontinued 4 years ago. FAMILY HISTORY: Negative for premature coronary disease. REVIEW OF SYSTEMS: Pulmonary: Noteworthy for mild dyspnea, but otherwise negative. There has been no hemoptysis. Gastrointestinal: Noteworthy for upper abdominal discomfort as well as nausea. He has had some recent diarrhea. There has been no melena. There is history of gastroesophageal reflux. Constitutional: Noncontributory beyond history of present illness. Remainder of review of systems negative/noncontributory beyond history of present illness with 14 total systems reviewed. PHYSICAL EXAMINATION: General: This is a thin, older, male in no distress. Vital Signs: Blood pressure 130/60, heart rate 94. HEENT Exam: Mucous membranes are somewhat dry. Neck: Supple. Jugular venous distention is evident and is prominent. With inspiration, neck vein distention does not seem to go down, but rather appears to increase mildly. Chest: Auscultation of the chest reveals breath sounds on the right much more audible than breath sounds on the left. No rales could be appreciated. Cardiac Exam: Reveals a regular rate and rhythm without appreciable murmur or gallop. Abdomen: Soft. Bowel sounds are audible. There is no rebound tenderness. Extremities: Without edema. His distal lower extremities are somewhat cool. Radial pulses are easily palpated bilaterally. Posterior tibialis pulses are palpable bilaterally. It is noteworthy that pulsus paradoxus is present. Neurologic Exam: Reveals him to be alert and responsive. Speech is fluent. Moves all 4 extremities equally well. DIAGNOSTIC DATA: EKG obtained on admission demonstrates normal sinus rhythm and is within normal limits. Echocardiography demonstrates large pericardial effusion with M-mode across RV free wall showing transient diastolic right ventricular free wall buckling. Left ventricular EF is normal. Study is technically difficult with respect to visualization of the aortic root, but no obvious dissection is evident. cc: MD Carlito Champagne MD
--- NOTE | 2017-07-16 18:08 | CONSULTATION ---
DATE OF CONSULTATION: 07/16/2017 HISTORY OF PRESENT ILLNESS: This 71-year-old male with relatively limited medical history due to mostly medical noncompliance, does have hypertension, who presents with increasing shortness of breath and some central chest pain, discomfort. He was found to have a large cardiac silhouette on his chest x-ray. Echocardiogram shows a large pericardial effusion with tamponade physiology. He has been hemodynamically stable although cannot lie flat. He has been tachycardic. He was transferred over here for surgical management. He was at [facility] and admitted under Dr. Beverly. I spoke with the adoption services manager and Dr. Beverly about this. Cardiology does not see hematocrit level of the fluid but he is unable to undergo CT scan given his symptoms, but denies any real abdominal pain or back pain or lower extremity pain. PAST MEDICAL HISTORY: 1. Hypertension. 2. Tobacco and alcohol abuse in the past. PAST SURGICAL HISTORY: He has had inguinal hernia and appendectomy. SOCIAL HISTORY: Strong tobacco and alcohol abuse. He has a lot of family here with him but history is a little limited. FAMILY HISTORY: Was reviewed and noncontributory. REVIEW OF SYSTEMS: 10 point negative other than HPI PHYSICAL EXAMINATION: Vital signs: Temperature is 98.9 degrees. Pulse has been as high as 117; it is 95 currently. Blood pressure 130s to 160s. Oxygen saturation 98% on 4 L. General: He is alert. Working to breathe. Obvious distress. Sitting straight up in bed. Cardiovascular: Normal rate. jugual venous distension bilaterally Regular rhythm. Pulmonary: He is tachypneic but equal chest rise. Abdomen is soft, nontender, nondistended. Integumentary: Warm and dry without jaundice. Peripheral vascular exam: His feet are not mottled but somewhat cool. Her has equal pedal pulses bilaterally in the upper and lower extremities. HEENT: I do not see any scleral icterus on his head neck exam. Musculoskeletal: He is just overall thin chronically ill appearing. Neurological: He is alert and oriented. Psychiatric: anxious but appropriately so LABS: White count is elevated at 13, hematocrit 28, platelets are 510,000. ABG , 7.29, 25, 79, 14. Lactate was elevated at 3. Creatinine is 2.2. Potassium 5.6. Glucose of 266. Lipase 23. Urinalysis is negative for nitrates, leukocytes. Chest x-ray shows cardiomegaly with diminished lung volumes. There is an infiltrate in the left lung. No pneumothorax or pleural effusion. ASSESSMENT AND PLAN: This is a 71-year-old male with cardiac tamponade related to a pericardial effusion of unclear etiology. He does give a history of dysphagia symptoms chronically and some chronic chest discomfort. I worry that this smoker and drinker could have a GI or pulmonary malignancy that is causing an effusion. Will need to work this up as well. In the meantime, will go urgently for pericardial window today. Will leave a drain. Discussed with the family the risks, benefits, and alternatives of this including the possibility of median sternotomy, possibility of , possibility of pneumothorax, possibility of staying on a ventilator, and the potential diagnosis that is causing this. They understand and consent, as the patient. Cardiology is following. The hospitalist is managing the patient. Will make a decision about his disposition but most likely ICU postoperatively. cc: MD Carlito Guzman MD MTDD
--- NOTE | 2017-07-16 18:29 | OPERATIVE NOTE ---
PROCEDURE DATE: 07/16/2017 PREOPERATIVE DIAGNOSES: Cardiac tamponade. POSTOPERATIVE DIAGNOSIS: Cardiac tamponade. PROCEDURES PERFORMED: Pericardial window with drain placement. ESTIMATED BLOOD LOSS: 30 mL, and 2 L of pericardial fluid. ANESTHESIA: General. DRAINS: FLACO drain left in the pericardium. SPECIMENS: 1. Pericardium biopsy. 2. Pericardial fluid for culture and cytology. INDICATIONS: A 71-year-old male who presented with chest pain, shortness of breath, with x-ray and echocardiogram showing large pericardial effusion and tamponade physiology. He had evidence of pulsus paradoxus and jugular venous distention and pericardial window drainage of infusion was indicated emergently. OPERATIVE FINDINGS: Was 2 L of sanguinous appearing pericardial fluid with rapid improvement in his hemodynamics after drainage. OPERATIVE NOTE: Risks, benefits, alternatives discussed with the patient's family. They consented to the procedure. He was seen preoperatively and surgery to be performed was confirmed. He was taken to the operating room, placed in supine position. General anesthesia induced without complication. Preincisional antibiotics were administered. He was prepped widely from his neck to his pubis with chlorhexidine solution and draped in the usual fashion with Ioban drapes. After this, a time-out was performed. We planned a midline incision just left of the xiphoid, carried this up to the costal margin. We dissected down to the level of fascia, entered the plane behind the xiphoid and bluntly dissected this up to level of pericardium. It was tented out and quite distended and tense. Using Allis forceps we grasped a portion of pericardium and excised with a 15 blade scalpel excising a portion of this and passing off to pathology. A large amount of fluid was under quite a lot of pressure and was expressed and suctioned until clear. We palpated inside the pericardium, there was no pericardial adhesions and the drainage stopped and his hemodynamics improved. We placed a Ever drain in the pericardium, brought this out through a stab incision lateral to the incision, secured it with a nylon suture. We then closed the fascia with a #1 PDS suture in a running fashion. Skin was closed with 4-0 Monocryl in subcuticular fashion. Dermabond was applied. FLACO drain was placed to suction. Tolerated the procedure well. Was extubated and transferred to recovery room. We plan to watch him in the ICU. Counts were correct x2. I spoke with the family. cc: MD Carlito Guzman MD
[2017-07-16 19:27] LABS: DIFF NEEDED? YES; MONOS 21 %; POLYS 79 %; WBC BF 9200 /cumm
[2017-07-16 20:05] LABS: FERRITIN 9310 ng/mL (30-400)
[2017-07-16] MEDS: PRILOSEC PO SCH (20:35)
[2017-07-16] MEDS: NORCO-7.5 PO PRN (20:38)
[2017-07-16] MEDS ORDERED: PRAVACHOL PO SCH (21:00)
[2017-07-17] MEDS: NS 1,000 ML IV SCH ×4 (03:07→16:19)
[2017-07-17] MEDS: NORCO-7.5 PO PRN ×3 (03:10→20:51)
[2017-07-17] MEDS: XOPENEX NEB INH SCH ×6 (03:14→23:15)
[2017-07-17] MEDS: ATROVENT NEB INH SCH ×6 (03:14→23:15)
[2017-07-17 04:46] LABS: MANUAL DIFF NEEDED? NO
[2017-07-17 04:56] LABS: INR 1.13; PTT 28.8 Seconds (22.0-36.0)
[2017-07-17 04:59] LABS: BASO% 0.1 % (0.0-0.8); EOS# 0.01 X1000 (0.0-0.7); EOS% 0.1 % (0.0-10.0); HEMATOCRIT 27.6 % (42.0-52.0); HEMOGLOBIN 9.2 g/dL (14.0-18.0); IMM GRAN# 0.03 X1000 (0.0-0.04); IMM GRAN% 0.2 % (0.0-0.5); LYMPH# 1.16 X1000 (1.2-3.4); LYMPH% 8.1 % (20.5-51.1); MCH 28.1 PG (27-31); MCHC 33.3 g/dL (33-37); MCV 84.4 FL (81-99); MONO# 1.59 X1000 (0.11-0.59); MONO% 11.2 % (1.7-9.3); MPV 8.8 FL (7.4-10.4); NEUT% 80.3 % (42.2-75.2); PLT 521 X1000 (130-400); RBC 3.27 XMIL (4.7-6.1)
[2017-07-17 05:03] LABS: HEMOGLOBIN A1C 7.9 % (4.8-6.0)
[2017-07-17 05:11] LABS: ALBUMIN 3.2 g/dL (3.5-5.0); CALCIUM 8.9 mg/dL (8.8-10.2); MAGNESIUM 1.9 mg/dL (1.5-2.7); POTASSIUM 3.6 mmol/L (3.5-5.1); TOTAL BILIRUBIN 0.19 mg/dL (0.20-1.00); TOTAL PROTEIN 6.3 g/dL (6.3-8.3)
[2017-07-17 05:21] LABS: FREE T4 2.06 ng/dL (0.93-1.70)
[2017-07-17] MEDS: ZOSYN 3.375 GM in NS 50 ML IV SCH ×4 (05:37→23:56)
[2017-07-17] MEDS: HUMULIN R SUBQ SCH ×5 (06:08→21:03)
--- NOTE | 2017-07-17 07:05 | EKG Report ---
Test Performed on : 07/17/2017 05:42:16 AM Test Reason : chest pain Blood Pressure : / mmHG Vent. Rate : 106 BPM Atrial Rate : 106 BPM P-R Int : 112 ms QRS Dur : 088 ms QT Int : 352 ms P-R-T Axes : 055 -29 052 degrees QTc Int : 467 ms Sinus tachycardia. Nonspecific T wave abnormality Lateral leads Otherwise normal ECG When compared with ECG of 15-JUL-2017 10:59, Vent. rate has increased BY [address] no longer elevated in Lateral leads Nonspecific T wave abnormality now evident in Lateral leads Confirmed by Jacob Noble MD ([id number]) on 07/19/2017 12:32:09 PM
--- NOTE | 2017-07-17 07:22 | Diag Imaging Result Doc PS360 ---
EXAM: CHEST-PORTABLE HISTORY: pna pericardial effusion TECHNIQUE: Portable AP COMPARISON: None 2016 FINDINGS: There is a left-sided pleural effusion and there are infiltrates in the left lung. Infiltrates and atelectasis are more pronounced on the were previously. There may be collapse of the left upper lobe on the current study. Heart is not enlarged. The vessels are not distended. IMPRESSION: Worsening infiltrates and atelectasis in the left lung with possible collapse of the left upper lobe. Electronically signed by Kenneth Barrett 07/17/2017 7:19 AM
--- NOTE | 2017-07-17 09:13 | Diag Imaging Result Doc PS360 ---
EXAM: CT THORAX/ABD/PELVIS W/O CONT HISTORY: abdominal pain TECHNIQUE: CT chest without contrast. CT abdomen and pelvis without contrast. Dose reduction protocol. COMPARISON: None. FINDINGS: Chest: There is a moderate sized left-sided pleural effusion measuring 4.1 cm posteriorly and inferiorly in the midline. There is a small right-sided pleural effusion measuring 2.2 cm. The heart is not enlarged. There is a axnmu-fi-swpumeua sized pericardial effusion and there is air in the anterior pericardium with a tiny amount of adjacent air exterior to the pericardium. A catheter is present within the pericardium. Mild emphysematous changes are present. There is collapse of the left upper lobe. This may be due to mucous plugging. There are small mediastinal lymph nodes. Atelectasis versus tiny infiltrates inferiorly in both lungs. Abdomen and pelvis: The gallbladder has been removed. Normal noncontrasted liver, spleen, and pancreas. There is thickening to the adrenal glands, but no distinct nodules. There is a small calcification inferiorly in the right kidney which may be vascular. No hydronephrosis. No aortic aneurysm. Moderate to prominent atherosclerosis. No bowel obstruction. A Pedraza catheter has the urinary bladder decompressed. No abscess. IMPRESSION: Chest: 1. Pericardial catheter with an effusion and small amount of air 2. Bilateral pleural effusions 3. Collapse of the left upper lobe possibly due to a mucous plug. There is also atelectasis inferiorly versus small infiltrates. 4. Mild emphysema Abdomen and pelvis: 1. Prominent atherosclerosis, but no aneurysmal dilatation to the aorta 2. No bowel obstruction or abscess. Electronically signed by Kenneth Barrett 07/17/2017 9:11 AM
[2017-07-17] MEDS: PRILOSEC PO SCH ×2 (09:23→20:52)
[2017-07-17] MEDS: MUCOMYST 20% INH SCH ×2 (11:25→19:25)
[2017-07-17] MEDS ORDERED: MUCOMYST 20% INH SCH (12:15)
--- NOTE | 2017-07-17 13:19 | PROGRESS NOTE ---
DATE: 07/17/2017 SUBJECTIVE: The patient has no focal complaints. OBJECTIVE: Vital signs: Blood pressure 115/88, heart rate 104, respiratory 23, temp 98.1 degrees, 98% on 40%. Cardiovascular: Regular rate and rhythm. Pulmonary: Bilateral breath sounds. Decreased breath sounds. GI: Soft, nontender. LABORATORY DATA: White count 4, hemoglobin and hematocrit 9 and 27, platelets 521,000. BUN and creatinine 60 and 1.8. A1c 7.9. AST and ALT are up to 281 and 351. Chest x-ray, looks like infiltrates in the left upper lobe. PROBLEM LIST: 1. Cardiac tamponade, pericardial effusion status post window. He is clinically stabilizing from that standpoint, doing well. Waiting on labs. 2. Left upper lobe collapse and pneumonia. Continue Zosyn. Follow up on sputum cultures. We will get pulmonary consult. We will continue to follow very closely. He may end up needing a thoracentesis on the fluid. We will discuss that with Dr. Katz, who has been consulted. 3. Diabetes. Continue to follow sliding scale very closely. 4. Elevated liver enzymes. We will continue to monitor. Check hepatitis screen and follow closely. 5. Acute kidney injury. We will continue to monitor closely. Stable currently. We will continue to monitor. 6. Disposition. Pending his clinical status. cc: MD Carlito Raphael MD
[2017-07-17] MEDS: SOLU-MEDROL IV SCH ×2 (13:36→18:39)
--- NOTE | 2017-07-17 16:26 | PROGRESS NOTE ---
DATE: 07/17/2017 SUBJECTIVE: The patient continues feeling considerably improved since pericardial window/drainage. He denies any dyspnea on supplemental oxygen per nasal cannula. OBJECTIVE: Vital Signs: Blood pressure 145/91, heart rate 110 and regular with ECG monitor showing sinus rhythm. Neck: There is no significant jugular venous distention. Chest: Auscultation of the chest reveals diminished breath sounds, right base greater than left base. Cardiac Exam: Reveals a regular rate and rhythm without appreciable murmur or gallop. Extremities: There is no evidence of peripheral edema. LABORATORY DATA: Laboratory data includes a white blood cell count 14.2, hematocrit 27.6, BUN 60, creatinine 1.8. IMPRESSION: 1. Status post pericardial window/drainage for large pericardial effusion with associated tamponade. Etiology not clear. 2. Bilateral pleural effusions, left greater than right. 3. Chronic kidney disease. Creatinine improved. 4. Hypertension. 5. Type 2 diabetes mellitus. RECOMMENDATIONS: 1. Follow up repeat echocardiography. 2. Watch in intensive care unit today. Probably reasonable to transfer patient to telemetry tomorrow if he continues clinically stable. cc: MD Carlito Champagne MD
--- NOTE | 2017-07-17 16:54 | PROGRESS NOTE ---
DATE: 07/17/2017 SUBJECTIVE: He states he feels a lot better. No fevers overnight, some low- grade tachycardia, but blood pressure has been okay. He is not on pressors. OBJECTIVE: Blood pressure 130/77, oxygen saturation 96%. He is on 40% face mask. Drain has some serosanguineous output 35 recorded. Looks like urine output was good 3600. LABS: White count 14, hematocrit 27, and has been stable. Creatinine is 1.8, glucose 158. Transaminases are mildly elevated. BNP is elevated 2632. ASSESSMENT AND PLAN: This is a 71-year-old male status post pericardial window for cardiac tamponade of unclear etiology. Overall hemodynamically he is much improved. The studies are still pending on his fluid. We did take a pericardial biopsy as well. He has plans for CT scan today to rule out a malignant process. I think this is the best next step. He has also a repeat echocardiogram. Will continue to follow along and keep his drain through the weekend. Dr. Rangel is going to see him for me over the weekend. His chest x-ray looks all right this morning with some hazy opacities to the left lung more so than the right, but no pneumothorax. Will continue follow along. cc: MD Carlito Guzman MD MTDD
--- NOTE | 2017-07-17 21:59 | ECHO REPORT ---
ORDER DATE: 07/16/2017 MEASUREMENTS: Left ventricular end-diastolic diameter 3.8, end-systolic diameter 2.6, septal thickness 1.2, posterior wall thickness 1.2. Left atrium 3.7, aortic root 3.1. SUMMARY: 1. Technically difficult study due to limited acoustic window quality. 2. Trileaflet aortic valve demonstrates mild sclerosis but opens adequately on 2-dimensional images. Peak gradient across aortic valve is approximately 10 mmHg. There is mild mitral annular calcification. Tricuspid valve was without evidence of structural abnormality while pulmonic valve is not well demonstrated. The aortic root is normal size. 3. Normal left ventricular chamber size with mild concentric left hypertrophy is demonstrated. Estimated left ejection fraction appears to be at least 65%. No regional wall motion abnormalities are evident. Doppler suggests grade 1 left ventricular diastolic dysfunction. Left atrium is upper normal in size. Right atrium and right ventricle are normal size with normal right ventricular systolic function. 4. Moderate size pericardial effusion demonstrated anteriorly without echo markers of tamponade physiology. 5. Appearance of inferior vena cava suggests normal central venous pressure. CONCLUSIONS: 1. Technically difficult study. 2. No significant valvular abnormality. 3. Mild concentric left hypertrophy with estimated left ejection fraction at least 65%. 4. Moderate pericardial effusion located predominantly anteriorly and toward the apex. cc: MD Ketan Champagne MD Michael Putman, MD
[2017-07-18] MEDS: XOPENEX NEB INH SCH ×6 (03:35→23:30)
[2017-07-18] MEDS: ATROVENT NEB INH SCH ×6 (03:35→23:30)
[2017-07-18] MEDS: NS 1,000 ML IV SCH ×2 (05:33→20:20)
[2017-07-18] MEDS: ZOSYN 3.375 GM in NS 50 ML IV SCH ×4 (05:33→23:11)
[2017-07-18] MEDS: SOLU-MEDROL IV SCH ×5 (06:41→23:14)
[2017-07-18] MEDS: HUMULIN R SUBQ SCH ×4 (06:54→20:21)
[2017-07-18 07:14] LABS: HEMATOCRIT 29.4 % (42.0-52.0); HEMOGLOBIN 9.5 g/dL (14.0-18.0); MCH 28.5 PG (27-31); MCHC 32.3 g/dL (33-37); MCV 88.3 FL (81-99); MPV 8.4 FL (7.4-10.4); RBC 3.33 XMIL (4.7-6.1)
[2017-07-18 07:38] LABS: AGAP 20; BUN 29 mg/dL (8-22); CHLORIDE 100 mmol/L (98-107); COSMO 294; POTASSIUM 3.8 mmol/L (3.5-5.1); SODIUM 142 mmol/L (136-145); TCO2 22 mmol/L (25-35)
[2017-07-18] MEDS: MUCOMYST 20% INH SCH ×2 (07:50→19:30)
[2017-07-18] MEDS: PRILOSEC PO SCH ×2 (09:19→20:19)
[2017-07-18] MEDS: NORCO-7.5 PO PRN ×2 (10:09→20:20)
--- NOTE | 2017-07-18 10:41 | Diag Imaging Result Doc PS360 ---
EXAM: CHEST-1 VIEW HISTORY: SOB TECHNIQUE: AP portable at 0950 COMMENT: There continues to be volume loss in the left hemithorax with elevation of the left hemidiaphragm. Apical pleural thickening or loculated fluid is again noted on the left. Patchy opacities are present in the left lower lobe and perihilar region. The appearance of the right lung is not changed significantly since the previous study of 07/17/2017. Compared to 07/16/2017 pulmonary edema which was present previously bilaterally is apparently improved. Between the two examinations, there has apparently been collapse of the left upper lobe. IMPRESSION: Left upper lobe atelectasis. Essentially stable since 07/17/2017. Electronically signed by Genaro Ellison 07/18/2017 10:39 AM
[2017-07-18] MEDS ORDERED: LASIX IV ONE (11:30)
--- NOTE | 2017-07-18 13:17 | PROGRESS NOTE ---
DATE: 07/18/2017 SUBJECTIVE: Mr. Phillips reports he feels well. He is currently on IV antibiotics. He has no complaints of shortness of breath. No chest pain. PHYSICAL EXAMINATION: He is afebrile. His heart rate is in the low 100s. Blood pressure most recently is 172/95; currently, he is in the 110s to 130s. Generally, he is in no acute distress. Cardiovascularly, he sounds to be in a regular rate and rhythm. He has no murmurs. Chest exam sounds clear bilaterally. He has no increased work of breathing. Abdomen is soft, nontender. PERTINENT DATA: His white count is 13, hematocrit 29, platelet count 494,000. His sodium is 142, potassium 3.8. BUN 29, creatinine 0.9 which is down from 60 and 1.8 respectively. ASSESSMENT: 1. Pericardial effusion status post pericardial window for tamponade. 2. Pneumonia. PLAN: Pathology is still pending on the patient. Presently, he is still receiving IV antibiotics. His renal function seems improved. Drain is still in place, managed by surgery. I have no further recommendations presently. cc: MD Carlito Hayes MD
--- NOTE | 2017-07-18 14:22 | PROGRESS NOTE ---
DATE: 07/18/2017 SUBJECTIVE: Patient has no focal complaints. He looks better today. He is more awake, alert, breathing less heavily. OBJECTIVE: Vital signs: Blood pressure 172/95, heart rate 105, respiratory rate 18, temperature 98 degrees, 98% on 4 L. Cardiovascular: Regular rate and rhythm. Pulmonary: Bilateral breath sounds. Diminished in the left lung post. GI: Was soft, nontender, nondistended. Bowel sounds are positive. Extremities: No clubbing or cyanosis. Lymphatics: No peripheral edema. Neurological: Nonfocal. LABORATORY DATA: White count 13, hemoglobin and hematocrit 9 and 29, platelets 494,000. Basic was much improved. The BUN and creatinine down to 29 and 0.9. CRP was 247. ProBNP of 2632, free T4 was 2.06. PROBLEM LIST: 1. Symptomatic pericardial effusion with tamponade status post pericardial window postop day 2. Seems to be improving from that standpoint. 2. We still are not clear of the etiology. Fluid does have significant leukocytosis however nothing has grown out of culture. I am going to go ahead and do a QuantiFERON for tuberculosis, does not really have risk factors for that but we are looking into it. 3. Possible pneumonia, pleural effusions. He may need a diagnostic thoracentesis. I will discuss with Dr. Katz when he evaluates the patient today about that. He has been placed on steroids. His chest x-ray unfortunately looks worse. I am going to try to put on some breathing treatments and follow. 4. Diabetes, well controlled. Continue to follow. 5. Elevated liver enzymes. We will monitor his liver enzymes. Hepatitis screen I think has been checked. We may need to consider an HIV test although again very limited risk factors for that. 6. Acute kidney injury fortunately resolved, decrease fluids. DISPOSITION: I think he is probably stable for step down today, I am going to go ahead and move him if bed available. cc: MD Carlito Raphael MD
--- NOTE | 2017-07-18 14:56 | PROGRESS NOTE ---
DATE: 07/18/2017 SUBJECTIVE: He denies any chest or abdominal pain. OBJECTIVE: Vital Signs: He is afebrile. Pulse 105, blood pressure 172/95, O2 saturation 98%. General: Alert and oriented x4. No acute distress. CV: Tachycardic. Respiratory: No work of breathing. Gastrointestinal: Soft, nontender. His epigastric drain is intact with serosanguineous fluid. LABORATORY: White blood cell count 13,000, hemoglobin 9.5. ASSESSMENT/PLAN: A 71-year-old male status post pericardial window for tamponade. He also has pneumonia. He is on intravenous antibiotics. He did have a CT scan yesterday showing left upper lobe collapse and some bilateral pleural effusions. This may need repeat imaging to verify improvement or resolution and, if not resolved, then thoracentesis and/or bronchoscopy may be helpful. cc: MD Carlito Lopez MD
--- NOTE | 2017-07-19 00:30 | CONSULTATION ---
DATE OF CONSULTATION: 07/18/2017 CHIEF COMPLAINT: Shortness of breath and syncope. HISTORY OF PRESENT ILLNESS: This is a 71-year-old with a complaint of shortness of breath, and a past medical history of hypertension, diabetes mellitus type 2, hyperlipidemia, GERD, stage 3 kidney disease, and left eye blindness. He presented to the ER after a syncopal episode, and admitted to the ICU for close observation. PAST MEDICAL HISTORY: As mentioned in the HPI. PAST SURGICAL HISTORY: Umbilical hernia repair. SOCIAL HISTORY: Quit smoking 4 years ago. Denies alcohol or illicit drug use. Lives with his . FAMILY HISTORY: Positive for diabetes type 2. REVIEW OF SYSTEMS: A 10-point review of systems was conducted, and the pertinents mentioned in the HPI, otherwise noncontributory. ALLERGIES: No known drug allergies. HOME MEDICATIONS: Metformin 500 mg p.o. t.i.d., albuterol 1 puff every 6 hours as needed, pravastatin 40 mg p.o. at bedtime, metoprolol ER 100 mg p.o. daily, losartan/hydrochlorothiazide 100 mg/12.5 mg tablet 1 p.o. daily, glimepiride 4 mg p.o. daily, amlodipine 5 mg p.o. daily. PHYSICAL EXAMINATION: Vital Signs: Temperature 98.3, pulse rate 105, respiratory rate 18, blood pressure 172/95, oxygen saturation 98% per nasal cannula at 4 L of oxygen per minute. General: This is a 71-year-old male with shortness of breath. Does not appear in any distress at this time. HEENT: Eyes equal, round, and reactive to light and accommodation. Mucous membranes moist. Neck: Supple. Trachea midline. Cardiovascular: S1 and S2 auscultated. Regular rate and rhythm. Negative for gallops, rubs, or murmurs. Pulmonary: Diminished breath sounds bilaterally. Gastrointestinal: Abdominal soft, with tenderness noted in the epigastric region. Neurologic: Alert and oriented x3. Follows commands. Skin: Warm, dry, and intact. Extremities: No cyanosis or edema. LABORATORY DATA: White blood cells 13.01, red blood cells 3.33, hemoglobin 9.5, hematocrit 29.4, MCHC 32.3, platelet count 494,000. DIAGNOSTIC DATA: Chest x-ray impression: Left upper lobe atelectasis. Patchy opacities are present in the left lower lobe, perihilar region. CT of the thorax, abdomen, and pelvis impression: Pericardial catheter with an effusion and a small amount of air. Bilateral pleural effusion throughout the left upper lobe, possibly due to mucus plug. There is also atelectasis inferiorly, versus small infiltrate. Mild emphysema. Abdomen and pelvis impression: Prominent atherosclerosis, but no aneurysmal dilation to the aorta. No bowel obstruction or abscess. ASSESSMENT AND PLAN: 1. Pneumonia/atelectasis. Continue antibiotic treatment as prescribed. 2. Cardiac tamponade, with pericardial effusion. Continue to monitor closely. 3. Hypertension. Continue previous treatment when appropriate. 4. Diabetes. Pattern blood glucose, glucose sticks, sliding scale insulin, diabetic diet. 5. Hyperlipidemia. Continue statin as prescribed. 6. Continue GI prophylaxis with Prilosec. Thank you for the courtesy of this consult. cc: MD Carlito Dickerson MD
[2017-07-19] MEDS: ATROVENT NEB INH SCH ×6 (04:00→23:25)
[2017-07-19] MEDS: SOLU-MEDROL IV SCH ×4 (05:39→23:59)
[2017-07-19] MEDS: ZOSYN 3.375 GM in NS 50 ML IV SCH ×4 (05:39→22:07)
[2017-07-19 06:10] LABS: HEMATOCRIT 29.8 % (42.0-52.0); HEMOGLOBIN 9.4 g/dL (14.0-18.0); MCH 27.6 PG (27-31); MCHC 31.5 g/dL (33-37); MCV 87.6 FL (81-99); MPV 8.5 FL (7.4-10.4); RBC 3.4 XMIL (4.7-6.1)
[2017-07-19 06:25] LABS: AGAP 14; BUN 29 mg/dL (8-22); CALCIUM 8.7 mg/dL (8.8-10.2); CHLORIDE 100 mmol/L (98-107); COSMO 297; POTASSIUM 3.3 mmol/L (3.5-5.1); SODIUM 144 mmol/L (136-145); TCO2 30 mmol/L (25-35)
[2017-07-19] MEDS: HUMULIN R SUBQ SCH ×4 (06:46→21:37)
--- NOTE | 2017-07-19 07:28 | Diag Imaging Result Doc PS360 ---
EXAM: CHEST-1 VIEW HISTORY: SOB TECHNIQUE: Erect AP portable at 0525 COMMENT: The inspiration is slightly less optimal than on 07/18/2017. There continues to be atelectasis of the left upper lobe. Otherwise there is been no significant change since the previous study. IMPRESSION: Left upper lobe collapse. Electronically signed by Genaro Ellison 07/19/2017 7:25 AM
[2017-07-19] MEDS: XOPENEX NEB INH SCH ×5 (08:16→23:25)
[2017-07-19] MEDS: MUCOMYST 20% INH SCH ×3 (08:16→20:14)
[2017-07-19] MEDS: PRILOSEC PO SCH ×2 (08:37→21:50)
[2017-07-19] MEDS: NS 1,000 ML IV SCH (10:57)
[2017-07-19] MEDS ORDERED: POTASSIUM CHLORIDE 20% LIQUID PO ONE (11:38)
--- NOTE | 2017-07-19 12:00 | PROGRESS NOTE ---
DATE: 07/19/2017 SUBJECTIVE: Mr. Phillips reports he is doing well. He is not having any complaints. No chest pain. OBJECTIVE: Vital signs: He is afebrile. His heart rates seem to be in the low 100s predominantly. His blood pressure is 156/92. General: He is in no acute distress. Cardiovascular: He sounds to be in a regular rate and rhythm. Pericardial drain is still in place. Minimal drainage is noted within the bulb drain. Chest: Exam sounds relatively clear to auscultation bilaterally. He has no increased work of breathing. Abdomen: Soft, nontender. No obvious rebound or guarding. PERTINENT DATA: White count 15.3, hematocrit 29.8, platelet count is 562,000. His sodium is 144, potassium 3.3. His BUN is 29, creatinine 0.9. ASSESSMENT: 1. Pericardial effusion. 2. Pneumonia. PLAN: He is continued on antibiotics. I will replete his potassium with [address] Saul will be back to follow the patient in the future. cc: MD Carlito Hayes MD
[2017-07-19] MEDS ORDERED: TOPROL XL PO SCH (12:30)
--- NOTE | 2017-07-19 14:36 | PROGRESS NOTE ---
DATE: 07/19/2017 SUBJECTIVE: Patient looks better and better every day. He just seems much more awake, alert. OBJECTIVE: Vital signs: Blood pressure 145/87, heart rate 106, respiratory 25, temperature 97.9 degrees, 95% on 3 L. Cardiovascular: Regular rate and rhythm, tachy. Pulmonary: Bilateral breath sounds. Diminished at the bases right and left. No wheezing. GI: Was soft, nontender, nondistended. Bowel sounds are positive. His drain incision looks clean, dry and intact. LABORATORY DATA: White count 15, hemoglobin and hematocrit 9 and 29, platelets 562,000. Chemistries okay. Potassium 3.3. Sugars have averaged 167 up to 280. PROBLEM LIST: 1. Pericardial effusion, tamponade status post pericardial window postop day 3, he seems to be doing much better. Not clear what etiology is. So far cultures are negative. We are screening him for tuberculosis, still evaluating for malignancy, cytology is not back. 2. Pneumonia, pleural effusion. Dr. Katz I think is planning to do bronchoscopy earlier this week because he has a left upper lobe collapse and to evaluate for possible malignancy. Chest x-ray today looks better after some diuresis. I am not sure if he still will need thoracentesis. Will discuss with Dr. Katz. 3. Diabetes appears to be stable. 4. Elevated liver enzymes. We will continue to follow. HIV and hepatitis have been ordered. 5. Acute kidney injury. That has resolved. I am going to stop his fluids just so avoid overloading. We will continue to follow. He is also empirically on steroids if this is an autoimmune process. His CRP was very elevated 247 but he was in extremis when he came in. Sedimentation rate was 123 so it is suspicious this may be something rheumatological. ERNESTO is pending. I guess I will go ahead and order ANCA and rheumatoid factors and again the ERNESTO is still pending. cc: MD Carlito Raphael MD
[2017-07-19] MEDS: NORCO-7.5 PO PRN (15:18)
[2017-07-19] MEDS: TOPROL XL PO SCH (15:19)
[2017-07-19] MEDS: NORVASC PO SCH (15:19)
[2017-07-20] MEDS: ATROVENT NEB INH SCH ×5 (03:20→23:26)
[2017-07-20] MEDS: XOPENEX NEB INH SCH ×6 (03:20→23:26)
[2017-07-20] MEDS: ZOSYN 3.375 GM in NS 50 ML IV SCH ×4 (04:43→22:54)
[2017-07-20] MEDS: HUMULIN R SUBQ SCH ×4 (06:07→22:54)
[2017-07-20] MEDS: SOLU-MEDROL IV SCH ×4 (06:10→23:32)
[2017-07-20 07:09] LABS: HEMATOCRIT 32.5 % (42.0-52.0); MCH 27.9 PG (27-31); MCHC 30.8 g/dL (33-37); MCV 90.8 FL (81-99); MPV 8.2 FL (7.4-10.4); RBC 3.58 XMIL (4.7-6.1)
--- NOTE | 2017-07-20 07:25 | Diag Imaging Result Doc PS360 ---
CHEST-1 VIEW - 07/20/2017 INDICATION: SOB TECHNIQUE: COMPARISON: 07/19/2017 FINDINGS: Stable opacification at the left apex that is based at the mediastinum. Compatible with complete collapse of the left upper lobe. Stable cardiomegaly. No new or focal infiltrates. IMPRESSION: No change from prior. Electronically signed by Brad Bethea 07/20/2017 7:23 AM
[2017-07-20 07:38] LABS: AGAP 14; BUN 33 mg/dL (8-22); CALCIUM 9.7 mg/dL (8.8-10.2); CHLORIDE 98 mmol/L (98-107); COSMO 295; POTASSIUM 3.9 mmol/L (3.5-5.1); SODIUM 142 mmol/L (136-145); TCO2 30 mmol/L (25-35)
[2017-07-20] MEDS: MUCOMYST 20% INH SCH ×3 (08:04→19:25)
[2017-07-20] MEDS: NORVASC PO SCH (09:00)
[2017-07-20] MEDS: PRILOSEC PO SCH ×2 (09:00→22:57)
[2017-07-20] MEDS: TOPROL XL PO SCH (09:00)
[2017-07-20 10:36] LABS: HEPATITIS PROFILE ACUTE SEE COMMENTS
[2017-07-20] MEDS: NORCO-7.5 PO PRN (11:46)
--- NOTE | 2017-07-20 14:56 | PROGRESS NOTE ---
DATE: 07/20/2017 SUBJECTIVE: He feels very well he says. More alert. In good spirits. OBJECTIVE: vital signs: No fevers. No tachycardia. Blood pressure 155/76. He is on room air when I examined him, but it looks like he has been on 3 L overnight. General: Alert, no acute distress. Cardiovascular: Strong radial pulses. Epigastric incision is healing well with no signs of infection. FLACO drain is minimal output, serosanguineous fluid. LABORATORY: White count 14, hematocrit 32. Creatinine 0.8. ASSESSMENT/PLAN: A 71-year-old male status post pericardial window for cardiac tamponade. Overall, he is doing very well from a cardiac standpoint. Drain output is minimal, and removed his drain today at the bedside. He had a CT scan of abdomen, chest and pelvis which failed to reveal any source of his effusion. Chest x-ray does show a consolidated left upper lobe and I think Dr. Katz is planning on doing a bronchoscopy. Suspect that this will be high yield. If not, he probably needs an EGD to look at his esophagus. Pericardial biopsies pending. I will continue follow along. cc: MD Carlito Guzman MD
[2017-07-20 16:26] LABS: ALBUMIN 3.4 g/dL (3.5-5.0); ALKALINE PHOSPHATASE 111 U/L (32-122); DIRECT BILIRUBIN < 0.20 mg/dL (0.00-0.20); GOT 45 U/L (10-34); GPT 173 U/L (10-44); TOTAL PROTEIN 5.9 g/dL (6.3-8.3)
--- NOTE | 2017-07-20 16:51 | PROGRESS NOTE ---
DATE: 07/20/2017 SUBJECTIVE: Patient looks well. No major complaints. OBJECTIVE: Vital signs: Blood pressure is 155/76, heart rate of 88, respiratory rate 18, temperature 98.3 degrees 98% on 3 L. Cardiovascular: Regular rate and rhythm. Pulmonary: Bilateral breath sounds. Clear to auscultation. GI: Soft, nontender, nondistended. Bowel sounds are positive. LABORATORY DATA: 1. Potassium is 3.9, sugars have been 174, up to 245, white count, 14, hemoglobin and hematocrit 10 and 32, platelets 546,000. PROBLEM LIST: 1. Pericardial effusion status post tamponade. Still unclear etiology. Clinically he has improved. Drain has been removed. 2. Pleural effusions, bilateral, with left upper lobe collapse. There is still a concern over possible malignancy. Cytology is unrevealing. Plan is for bronchoscopy tomorrow to evaluate left upper lobe collapse. Hopefully resolve that issue. 3. Diabetes. We will adjust his blood sugars. He is on steroids per Dr. Katz, I guess treating empirically if this is a rheumatological issue. CRP and sedimentation rate are elevated, but ERNESTO is negative. Rheumatoid factor is negative and I am still waiting on the C- ANCA testing. His hepatitis panel is negative. 1. Clinically he seems better. He is still requiring some oxygen. I will repeat his x-ray in a couple of days. 2. Acute kidney injury. This seems to be doing better, but pretty much has resolved. It was probably due to his shock state when he came in. DISPOSITION: Hopefully home in the next 1-2 days pending his cultures. cc: MD Carlito Raphael MD
[2017-07-21] MEDS: XOPENEX NEB INH SCH ×6 (02:32→22:31)
[2017-07-21] MEDS: ATROVENT NEB INH SCH ×6 (02:32→22:30)
[2017-07-21] MEDS: SOLU-MEDROL IV SCH ×4 (04:59→23:40)
[2017-07-21] MEDS: ZOSYN 3.375 GM in NS 50 ML IV SCH ×4 (04:59→23:41)
[2017-07-21] MEDS: HUMULIN R SUBQ SCH ×4 (06:12→23:41)
--- NOTE | 2017-07-21 07:15 | Diag Imaging Result Doc PS360 ---
EXAM: CHEST-1 VIEW HISTORY: SOB TECHNIQUE: Erect AP portable at 0550 COMMENT: There is still some hazy opacity in the retrocardiac region of the left lower lobe and collapse of the left upper lobe. This is not changed since 07/20/2017. IMPRESSION: Stable since 07/20/2017. Electronically signed by Genaro Ellison 07/21/2017 7:13 AM
[2017-07-21 07:25] LABS: HEMATOCRIT 33.8 % (42.0-52.0); HEMOGLOBIN 10.5 g/dL (14.0-18.0); MCH 28.1 PG (27-31); MCHC 31.1 g/dL (33-37); MCV 90.4 FL (81-99); MPV 8.1 FL (7.4-10.4); RBC 3.74 XMIL (4.7-6.1)
[2017-07-21] MEDS: MUCOMYST 20% INH SCH ×3 (07:47→22:30)
[2017-07-21 07:49] LABS: AGAP 14; BUN 32 mg/dL (8-22); CALCIUM 9.5 mg/dL (8.8-10.2); CHLORIDE 96 mmol/L (98-107); COSMO 295; POTASSIUM 3.9 mmol/L (3.5-5.1); SODIUM 141 mmol/L (136-145); TCO2 31 mmol/L (25-35)
[2017-07-21] MEDS: NORVASC PO SCH (08:19)
[2017-07-21] MEDS: TOPROL XL PO SCH (08:20)
[2017-07-21] MEDS: PRILOSEC PO SCH ×2 (08:20→23:41)
[2017-07-21 10:37] LABS: HIV ANTIBODY SCREEN SEE COMMENTS
--- NOTE | 2017-07-21 14:42 | PROGRESS NOTE ---
DATE: 07/21/2017 SUBJECTIVE: This patient is resting comfortably in bed. He looks fine. No major complaints. No acute events overnight. OBJECTIVE: Vital Signs: Temperature 98 degrees, pulse 84, respiratory rate 20 , blood pressure 158/87, O2 saturation 98 on 3 L of nasal cannula. HEENT: Head normocephalic. No trauma. PERRLA. Neck: Supple. No JVD. No masses. Central trachea. Chest: Clear to auscultation. No wheezing. Mild crepitus at the level of the left upper and lower lung. Cardiovascular: RRR. Abdomen: Soft, nontender, nondistended. No hepatosplenomegaly. Extremities: No edema. No clubbing. No cyanosis. Neurological: The patient is alert and oriented x3. No focal deficits. LABORATORY: WBC 15, hemoglobin 10.5, hematocrit 33.8, platelets 533,000. Sodium 141, potassium 3.9, chloride 96, bicarbonate 31, BUN 32, creatinine 1, glucose 226, calcium 9.5. ASSESSMENT AND PLAN: 1. Pericardial effusion status post tamponade, status post pericardial window. Still unclear etiology. Clinically he is improved. Drain has been removed. He looks stable. 2. Pleural effusion, bilateral with left upper lobe collapse. He is scheduled for a bronchoscopy tomorrow, we will evaluate the left upper lobe collapse. 3. Type 2 diabetes. He is still on steroids suggested by Dr. Katz, tomorrow after the procedure probably I will put this patient on long-acting insulin. For now continue with sliding scale insulin and pattern of blood sugar. 4. Hypertension. Stable. Continue with the same management. 5. Hyperlipidemia. Continue with the same treatment. 6. Possible sepsis on admission. Resolved. 7. Acute kidney injury on Chronic kidney disease stage 3. His BUN is a little bit elevated at 32 and the creatinine is 1. His ejection fraction is more than 60%. We will continue to monitor. 8. Gastroesophageal reflux disease. Continue with proton pump inhibitors. cc: MD Carlito Salazar MD MTDD
[2017-07-22] MEDS: ATROVENT NEB INH SCH ×6 (03:20→23:15)
[2017-07-22] MEDS: XOPENEX NEB INH SCH ×6 (03:20→23:15)
[2017-07-22] MEDS: SOLU-MEDROL IV SCH ×3 (06:42→18:49)
[2017-07-22] MEDS: ZOSYN 3.375 GM in NS 50 ML IV SCH ×3 (06:42→18:49)
--- NOTE | 2017-07-22 07:21 | Diag Imaging Result Doc PS360 ---
EXAM: CHEST-1 VIEW INDICATION: SOB TECHNIQUE: One view COMPARISON: 07/21/2017 FINDINGS: Left upper lobe collapse and mild retrocardiac hazy opacity at the left lower lung zone is unchanged. No new consolidation is appreciated. Cardiac silhouette is stable. IMPRESSION: Essentially stable chest. Electronically signed by Reji Arellano 07/22/2017 7:19 AM
[2017-07-22] MEDS: MUCOMYST 20% INH SCH ×4 (07:29→19:25)
[2017-07-22 07:35] LABS: AGAP 13; ALBUMIN 3.3 g/dL (3.5-5.0); ALKALINE PHOSPHATASE 88 U/L (32-122); BUN 30 mg/dL (8-22); CALCIUM 9.8 mg/dL (8.8-10.2); CHLORIDE 99 mmol/L (98-107); COSMO 294; GOT 15 U/L (10-34); GPT 92 U/L (10-44); POTASSIUM 3.9 mmol/L (3.5-5.1); SODIUM 142 mmol/L (136-145); TCO2 30 mmol/L (25-35); TOTAL BILIRUBIN 0.19 mg/dL (0.20-1.00); TOTAL PROTEIN 6.6 g/dL (6.3-8.3)
[2017-07-22 07:38] LABS: BASO% 0.1 % (0.0-0.8); HEMATOCRIT 32.8 % (42.0-52.0); HEMOGLOBIN 10.3 g/dL (14.0-18.0); IMM GRAN# 0.17 X1000 (0.0-0.04); IMM GRAN% 1.1 % (0.0-0.5); LYMPH# 1.32 X1000 (1.2-3.4); LYMPH% 8.4 % (20.5-51.1); MANUAL DIFF NEEDED? YES; MCH 27.7 PG (27-31); MCHC 31.4 g/dL (33-37); MCV 88.2 FL (81-99); MONO# 0.79 X1000 (0.11-0.59); MPV 8.6 FL (7.4-10.4); NEUT% 85.4 % (42.2-75.2); PLT 543 X1000 (130-400); RBC 3.72 XMIL (4.7-6.1)
[2017-07-22] MEDS: HUMULIN R SUBQ SCH ×5 (07:54→22:29)
[2017-07-22 08:04] LABS: HYPOCHROM 2+; LYMPHS 4 % (21-51); MONO 10 % (1-9)
[2017-07-22] MEDS ORDERED: XYLOCAINE 2% ONE ×2 (10:13→11:37)
[2017-07-22] MEDS ORDERED: SODIUM CHLORIDE 0.9% 20 ML ONE (10:13)
[2017-07-22] MEDS ORDERED: XYLOCAINE 1% ONE (10:13)
[2017-07-22] MEDS ORDERED: EPINEPHRINE ONE (10:13)
[2017-07-22] MEDS ORDERED: XYLOCAINE 2% VISCOUS ONE (10:13)
[2017-07-22] MEDS ORDERED: FENTANYL ONE (11:02)
[2017-07-22] MEDS ORDERED: DIPRIVAN 1% ONE (11:02)
--- NOTE | 2017-07-22 11:47 | PROGRESS NOTE ---
DATE: 07/22/2017 SUBJECTIVE: This patient is resting comfortably in bed. He is complaining of cough with white sputum, no fever, no chills. Also he has been complaining of mild shortness of breath. He is scheduled today for a bronchoscopy. He has a left upper lung collapse and Pulmonary Department following this patient closely. OBJECTIVE: Vital Signs: Temperature 98.4 degrees, pulse 83, respiratory rate 20, blood pressure 164/80, oxygen saturation 94% on 3 L of nasal cannula. HEENT: Head normocephalic. No trauma. Neck: Supple. No JVD. No masses. Central trachea. Chest: Clear to auscultation. No wheezing. No rales. He has a small wound that looks fine. Mild crepitus at the level of the left upper and lower lung. Cardiovascular: RRR. Abdomen: Soft, nontender, nondistended. No hepatosplenomegaly. Extremities: No edema. No clubbing. No cyanosis. Neurological exam: The patient is alert and oriented x3. No focal neurological deficits. LABORATORY: WBC 15.7, hemoglobin 10.3, hematocrit 32.8, platelets 543. Sodium 142, potassium 3.9, chloride 99, bicarbonate 30, BUN 30, creatinine 0.9, glucose 190, calcium 9.8. AST 15, ALT 92, alkaline phosphatase 88, albumin 3.3. ASSESSMENT AND PLAN: 1. Pericardial effusion status post tamponade. This patient had a pericardial window, still unclear etiology. Clinically he is improved. Drain has been removed. He looks stable. 2. Pleural effusion bilateral with her left upper lobe collapse. He is scheduled for a bronchoscopy today. We will evaluate the left upper lobe collapse. 3. Type 2 diabetes. He is still on steroids suggested by Dr. Katz. We will continue to monitor the blood sugar. 4. Hypertension, stable. Continue with the same management. 5. Hyperlipidemia. Continue with the same treatment. 6. Possible sepsis on admission, resolved. 7. Acute kidney injury on chronic kidney disease. BUN and creatinine stable. His glomerular filtration rate is more than 60%. We will continue to monitor. 8. Gastroesophageal reflux disease. Continue with proton pump inhibitors. 9. Leukocytosis. Continue with antibiotics. cc: MD Carlito Salazar MD
--- NOTE | 2017-07-22 12:04 | PROGRESS NOTE ---
DATE: 07/22/2017 SUBJECTIVE: He feels well. He is on a little bit of supplemental O2, but no chest pain. No abdominal pain. No wound issues. Plan for bronchoscopy today. OBJECTIVE: Vital Signs: On physical exam, temperature is afebrile. Pulse 83, blood pressure 164/80, oxygen saturation 94% on 3 L. General: He is alert and in no acute distress. Incision is healing well. Integument: Warm, dry. Abdomen: Soft, nontender. LABS: White count 15, hematocrit 32, creatinine 0.9. ASSESSMENT AND PLAN: A 71-year-old male status post pericardial window. Pathology is pending. Plan for bronchoscopy today with Dr. Katz for a left upper lobe consolidation. Will follow along. If his bronchoscopies are revealing, he will most likely need esophagogastroduodenoscopy and I would be happy to perform this for the patient. cc: MD Carlito Guzman MD
--- NOTE | 2017-07-22 12:08 | OPERATIVE NOTE ---
PROCEDURE DATE: PROCEDURE: Bronchoscopy. INDICATION: Left upper lobe atelectasis in the picture of pericardial tamponade. DESCRIPTION OF PROCEDURE: Consent obtained. Conscious sedation administered via anesthesia, local anesthesia with lidocaine. Right nostril approached. Normal vocal cord movements. All major segments visualized. Fluoroscopy scanning used for guidance. Left upper lobe main segment has infiltrating tumor blocking about 60 to 70%. Diluted epinephrine was sprayed to prevent bleeding. Brushings, washings, and eventually endobronchial and transbronchial biopsies taken from there with fluoroscopy scanning. Blood loss minimal, less than 2 mL. The patient tolerated the procedure well. Fluoroscopy scanning after showed no pneumothorax; however, an official chest x-ray is also requested. IMPRESSIONS: 1. Left upper lobe atelectasis in the presence of pericardial tamponade. 2. Left upper lobe lung tumor, likely cancer. PLAN: Awaiting cytology and pathology results and microbiology. cc: MD Carlito Dickerson MD
--- NOTE | 2017-07-22 12:39 | Diag Imaging Result Doc PS360 ---
CHEST-1 VIEW - 07/22/2017 INDICATION: SOB TECHNIQUE: COMPARISON: Earlier 07/22/2017 FINDINGS: There is slight improvement, with significant aeration of the left upper lobe although there is still some collapse here. Lung volumes remain low, with overall collapse of the left hemithorax. There is a left pleural effusion as well. Heart size remains top normal. IMPRESSION: Improvement from prior, with some aeration of the left upper lobe. Otherwise no change. Electronically signed by Brad Bethea 07/22/2017 12:36 PM
[2017-07-22] MEDS: MORPHINE IV PRN (12:54)
[2017-07-22] MEDS: ZOFRAN IV PRN (12:59)
[2017-07-22] MEDS: NORVASC PO SCH (15:59)
[2017-07-22] MEDS: TOPROL XL PO SCH (15:59)
[2017-07-22] MEDS: PRILOSEC PO SCH ×2 (16:01→21:30)
[2017-07-22] MEDS: NORCO-7.5 PO PRN (22:19)
[2017-07-23] MEDS: SOLU-MEDROL IV SCH ×2 (00:04→05:06)
[2017-07-23] MEDS: ZOSYN 3.375 GM in NS 50 ML IV SCH ×5 (00:04→23:55)
[2017-07-23] MEDS: XOPENEX NEB INH SCH ×6 (03:20→22:56)
[2017-07-23] MEDS: ATROVENT NEB INH SCH ×6 (03:20→22:56)
[2017-07-23] MEDS: HUMULIN R SUBQ SCH ×4 (06:48→21:07)
[2017-07-23 07:02] LABS: HEMATOCRIT 32.8 % (42.0-52.0); HEMOGLOBIN 10.1 g/dL (14.0-18.0); IMM GRAN# 0.13 X1000 (0.0-0.04); IMM GRAN% 0.8 % (0.0-0.5); LYMPH# 0.61 X1000 (1.2-3.4); LYMPH% 3.9 % (20.5-51.1); MANUAL DIFF NEEDED? YES; MCH 27.3 PG (27-31); MCHC 30.8 g/dL (33-37); MCV 88.6 FL (81-99); MONO# 0.88 X1000 (0.11-0.59); MONO% 5.7 % (1.7-9.3); MPV 8.8 FL (7.4-10.4); NEUT% 89.6 % (42.2-75.2); PLT 453 X1000 (130-400)
--- NOTE | 2017-07-23 07:18 | Diag Imaging Result Doc PS360 ---
EXAM: CHEST-1 VIEW HISTORY: SOB TECHNIQUE: Erect AP portable at 0540 COMMENT: There is volume loss and opacity in the left lower lobe as well as the left upper lobe. The right lung is stable in appearance compared to 07/22/2017 and considering differences in technique there has been no appreciable change on the left. IMPRESSION: Atelectasis in the left upper and lower lobes. Electronically signed by Genaro Ellison 07/23/2017 7:16 AM
[2017-07-23 07:26] LABS: AGAP 11; BUN 30 mg/dL (8-22); CALCIUM 8.7 mg/dL (8.8-10.2); CHLORIDE 97 mmol/L (98-107); COSMO 288; POTASSIUM 4.3 mmol/L (3.5-5.1); SODIUM 139 mmol/L (136-145); TCO2 31 mmol/L (25-35)
[2017-07-23 07:30] LABS: LYMPHS 5 % (21-51)
[2017-07-23] MEDS: MUCOMYST 20% INH SCH ×3 (08:08→20:00)
[2017-07-23] MEDS: TOPROL XL PO SCH (09:16)
[2017-07-23] MEDS: PRILOSEC PO SCH ×2 (09:16→20:40)
[2017-07-23] MEDS: NORVASC PO SCH (09:17)
[2017-07-23] MEDS: MORPHINE IV PRN ×2 (10:29→20:41)
[2017-07-23] MEDS: ZOFRAN IV PRN (10:30)
[2017-07-23] MEDS ORDERED: SOLU-MEDROL IV SCH (12:00)
--- NOTE | 2017-07-23 17:49 | PROGRESS NOTE ---
DATE: 07/23/2017 SUBJECTIVE: This patient is resting comfortably in bed. He is complaining of cough but compared with yesterday he feels better. No fever. No chills. No shortness of breath. He had a bronchoscopy done yesterday that showed a left upper lung mass. This is likely the source of his pericardial effusion and tamponade. I will consult hematology/oncology and probably tomorrow I will be able to discharge this patient home. OBJECTIVE: Vital Signs: Temperature 97.6, pulse 70, respiratory rate 15, blood pressure 159/82, oxygen saturation 96% on 2 L of nasal cannula. HEENT: Head normocephalic. No trauma. Neck: Supple. No JVD. No masses. Central trachea. Chest: Rhonchi at the level of the left upper lung and left lower lung. Otherwise clear. Cardiovascular: RRR. Abdomen: Soft, nontender, nondistended. No hepatosplenomegaly. Extremities: No edema. No clubbing. No cyanosis. Neurological: The patient is alert and oriented x3. No focal deficits. LABORATORY: WBC 15.4, hemoglobin 10.1, hematocrit 32.8, platelet 453,000. Sodium 139, potassium 4.3, chloride 97, bicarbonate 31, BUN 30, creatinine 1, glucose 171, calcium 8.7. ASSESSMENT AND PLAN: 1. Pericardial effusion with cardiac tamponade status post pericardial window. Likely the etiology is lung cancer. Yesterday this patient had a bronchoscopy done that showed left upper lobe mass. Oncology department will be consulted. We will follow their recommendations. 2. Pleural effusion bilaterally with left upper lobe collapse. Again, this patient had a bronchoscopy done yesterday by Dr. Katz. Continue with the same management. 3. Type 2 diabetes. I decreased the dose of steroids. I will continue to monitor the blood sugar. Stable. 4. Hypertension, stable. Continue with the same management. 5. Hyperlipidemia. Continue with the same treatment. 6. Possible sepsis on admission. Resolved. 7. Acute on chronic kidney disease. BUN and creatinine are stable. Continue to monitor. 8. Gastroesophageal reflux disease. Continue with PPIs. 9. Leukocytosis. Continue with antibiotics. Probably also this is likely secondary to steroid use. 10. Left upper lung mass. Hematology/oncology has been consulted. Pending recommendations. cc: ParthaMD Carlito Parry MD
[2017-07-24] MEDS: XOPENEX NEB INH SCH ×3 (03:37→11:29)
[2017-07-24] MEDS: ATROVENT NEB INH SCH ×3 (03:37→11:29)
[2017-07-24] MEDS: ZOSYN 3.375 GM in NS 50 ML IV SCH ×2 (06:19→11:46)
[2017-07-24] MEDS: HUMULIN R SUBQ SCH ×2 (06:19→11:46)
[2017-07-24 06:44] LABS: MANUAL DIFF NEEDED? NO
[2017-07-24 06:46] LABS: BASO% 0.1 % (0.0-0.8); EOS# 0.05 X1000 (0.0-0.7); EOS% 0.3 % (0.0-10.0); HEMATOCRIT 33.1 % (42.0-52.0); HEMOGLOBIN 10.3 g/dL (14.0-18.0); IMM GRAN# 0.14 X1000 (0.0-0.04); IMM GRAN% 0.8 % (0.0-0.5); LYMPH# 1.09 X1000 (1.2-3.4); LYMPH% 6.5 % (20.5-51.1); MCH 27.5 PG (27-31); MCHC 31.1 g/dL (33-37); MCV 88.5 FL (81-99); MONO# 1.66 X1000 (0.11-0.59); MONO% 9.8 % (1.7-9.3); MPV 8.8 FL (7.4-10.4); NEUT% 82.5 % (42.2-75.2); PLT 431 X1000 (130-400); RBC 3.74 XMIL (4.7-6.1)
--- NOTE | 2017-07-24 07:18 | Diag Imaging Result Doc PS360 ---
EXAM: CHEST-1 VIEW INDICATION: SOB TECHNIQUE: One view COMPARISON: 07/23/2017 FINDINGS: Left upper lobe opacity suggesting atelectasis is stable. No new consolidation is appreciated. Cardiac silhouette is stable. IMPRESSION: Stable chest. Electronically signed by Reji Arellano 07/24/2017 7:16 AM
[2017-07-24 07:20] LABS: AGAP 12; BUN 33 mg/dL (8-22); CALCIUM 9.2 mg/dL (8.8-10.2); CHLORIDE 98 mmol/L (98-107); COSMO 294; POTASSIUM 4.4 mmol/L (3.5-5.1); SODIUM 140 mmol/L (136-145); TCO2 30 mmol/L (25-35)
[2017-07-24 07:49] VITALS: BP 150/74
[2017-07-24] MEDS: MUCOMYST 20% INH SCH (08:10)
[2017-07-24] MEDS: TOPROL XL PO SCH (09:12)
[2017-07-24] MEDS: PRILOSEC PO SCH (09:12)
[2017-07-24] MEDS: NORVASC PO SCH (09:13)
--- NOTE | 2017-07-24 19:20 | CONSULTATION ---
DATE OF CONSULTATION: 07/24/2017 Dr. Mcgovern has asked me to see Walter Phillips, he has a Klebsiella pneumonia. 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 The patient will be sent home on p.o. Levaquin 750 mg daily and I will see the patient in the office in 2 weeks at which time I will examine him and also repeat his x-ray. DIAGNOSIS: Klebsiella pneumonia. cc: MD Carlito Sewell MD
[2017-07-25] MEDS ORDERED: LEVAQUIN PO SCH (09:00)
--- NOTE | 2017-07-25 15:35 | DISCHARGE SUMMARY ---
ADMISSION DATE: 07/15/2017 DISCHARGE DATE: 07/24/2017 PERTINENT PROCEDURES: 1. Abdominal x-ray showed nonspecific bowel-gas pattern. 2. Head CT showed mild atrophic changes of mild chronic microvascular ischemic changes similar to previous exam. No visible acute intracranial abnormality. No hemorrhage or mass effect. 3. Echocardiogram limited view showed an EF of 55%. 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 4. Pericardial window and drain placement performed by Dr. Art Liang. 5. Echocardiogram showed an EF of 65% with no regional wall motion abnormalities evident. 6. Chest, abdomen and pelvis CT showed pericardial catheter with an effusion and small amount of air, bilateral pleural effusions, collapse of the left upper lobe possibly due to mucous plugging. There is atelectasis inferiorly versus small infiltrates, mild emphysema. Prominent atherosclerosis, but no aneurysmal dilatation of the aorta. No bowel obstruction or abscess. 7. Lung biopsy showed squamous cell carcinoma, moderately differentiated. 8. Final chest x-ray on 07/24 shows a stable chest. DISCHARGE DIAGNOSES: 1. Pericardial effusion with cardiac tamponade, status post pericardial window. 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 Lung biopsy showed squamous cell carcinoma. Will follow up with Dr. Khan on 07/29/2017 at 2:30 p.m. 2. Pleural effusions bilaterally with left upper lobe collapse. The patient did have a bronchoscopy done by Dr. Katz. He will continue on the same management. 3. Type 2 diabetes. His steroids have been decreased. Continue with home medications. 4. Hypertension, stable. Continue home medications. 5. Hyperlipidemia. Continue statin. 6. Possible sepsis on admission, now resolved. 7. Acute on chronic kidney disease. BUN and creatinine are stable. 8. Gastroesophageal reflux disease. Continue proton pump inhibitor. 9. Leukocytosis. Continue with antibiotics possibly secondary to steroid use. 10. Left upper lung mass. Pathology did come back positive for squamous cell. He does have an appointment lined up with Dr. Khan on 07/29. HOSPITAL COURSE: Mr. Phillips is a 71-year-old, male, who carries a past medical history of hypertension, type 2 diabetes, GERD, chronic kidney disease. Previous heavy smoker, previous heavy alcohol use. He was admitted to [facility] after presenting with syncope and progressing upper abdominal pain and recent diarrhea. He has been taking anti reflux medicines with some improvement in discomfort. His discomfort had gotten worse and did not seem to respond to medication. I believe he had a syncopal spell while having a bowel movement. He was brought to the ED at [facility] for evaluation. He had a syncope work up. They pursued an echocardiogram that indicated a large pericardial effusion with markers for tamponade. Cardiology was urgently consulted. He was transferred to [facility] and general surgery was also consulted, along with the hospitalist group. He underwent a pericardial window with drain placement by Dr. Art Liang. They were able to remove 2 L of sanguinous-appearing pericardial fluid with rapid improvement in his hemodynamics after drainage. He did have a left upper lobe collapse, a pneumonia. He was on IV antibiotics. We were following cultures. He receive a bronchoscopy by Dr. Katz. They did a biopsy that did show a left upper lobe tumor that was likely cancerous. A specimen from his pericardial biopsy, as well as his lung biopsy, though showed metastatic squamous cell carcinoma. Those images final resulted today were suspicious of this, thus the biopsy of the lung mass. He has been set up for an appointment with Dr. Khan on 07/29. Clinically the patient has improved. He is appropriate for discharge today with [facility] and his . DISCHARGE DIET: Diabetic. DISCHARGE MEDICATIONS: 1. Atenolol inhaler 1 puff inhaled q. 6 hours. 2. Norvasc 5 mg p.o. daily. 3. Glimepiride 4 mg p.o. daily. 4. [place] 7.5. mg p.o. q. 4 hours p.r.n. 5. Levaquin 750 mg p.o. daily. 6. Losartan/hydrochlorothiazide 100/12.5 mg one tab p.o. daily. 7. Glucophage 500 mg p.o. t.i.d. 8. Toprol-XL 100 mg p.o. daily. 9. Pravastatin 400 mg p.o. at bedtime. FOLLOWUP: Mr. Phillips is being discharged home with [facility] and his . He is follow up with Dr. Khan on 07/29/2017. He is to follow up with his PCP, Dr. Beverly, in 1-2 weeks or sooner if needed. He can return to the ED for any worsening of symptoms. Dictated by FRANCHESCA Martines for Partha Malhotra MD cc: MD Carlito Salazar MD
--- NOTE | 2017-07-29 09:30 | CONSULTATION ---
DATE OF CONSULTATION: 07/24/2017 ADDENUM: The patient's chest x-ray shows atelectasis of both the left upper lobe and left lower lobe. Patient's sputum grew Klebsiella pneumoniae as did his bronchial washings. The organism is an extended spectrum beta-lactamase line producer which is susceptible to Primaxin but it also is susceptible to Levaquin. The patient appears to have a Klebsiella infection superimposed in his left lung in addition to the atelectasis. cc: MD Carlito Sewell MD
--- NOTE | 2017-07-30 10:18 | DISCHARGE SUMMARY ---
ADMISSION DATE: 07/15/2017 DISCHARGE DATE: 07/24/2017 ADDENDUM: Patient seen and examined by me [id number]. All the lab work, vital signs and images were reviewed. This patient had a bronchoscopy done that showed a lung mass, and the biopsy showed squamous cell carcinoma, moderately differentiated. On my physical exam this patient was feeling good. He was not complaining of chest pain, or shortness of breath. His chest wound was healing fine without any abnormality. Most likely the source of this pericardial effusion/tamponade was this cancer. Dr. Khan was consulted and he will follow up this patient as an outpatient. At this moment this patient is not complaining of any symptoms, just mild sporadic cough. Also he needs to follow up with his primary care doctor Dr. Beverly in 1 or 2 weeks. All the findings were discussed with the patient and part of the family. They seem to understand. I agree with the assessment and plan for most information. See the formal discharge summary. cc: MD Carlito Salazar MD
== END 2017-07-24 14:07 | disposition home health service (06) ==
LOC: P.MEDSURG 10:36 → P.ED 10:36 → SUATTDRO 13:55 → OBSVTOIN 13:55 → 3S 07-16 12:27 → ICU 07-16 15:10 → 3N 07-19 15:02
PROVIDERS: ADMIT Internal Medicine; ATTEND Internal Medicine